=== PATIENT | male | born 1965 | race Caucasian/White ===

== ENCOUNTER 2021-10-07 10:45 | Inpatient (IN) | payer BC, MEDICAID ==
[~2021-10-07] VITALS: Ht 167.6 cm; Wt 108.0 kg
[2021-10-07] MEDS ORDERED: SODIUM CHLORIDE 0.9% 1,000 ML IV ONE (11:30)
[2021-10-07] MEDS ORDERED: SODIUM CHLORIDE 0.9% 1,000 ML IVB ONE (11:30)
[2021-10-07] MEDS ORDERED: ASPirin 81 mg TAB PO ONE (11:30)
[2021-10-07 12:00] LABS: Basophils # (auto) 0 10 ^3/uL (0-0.2); Basophils % (auto) 0.2 % (0.0-2.0); Eosinophils # (auto) 0 10 ^3/uL (0-0.8); Hemoglobin 12.2 g/dL (13.5-17.5); Lymphocytes # (auto) 0.5 10 ^3/uL (0.4-5.4); Lymphocytes % (auto) 7.4 % (10.0-50.0); Mean Corpuscular Hgb Conc. 33.1 g/dL (32.0-36.0); Mean Corpuscular Volume 87.8 fL (80.0-100.0); Monocytes # (auto) 0.3 10 ^3/uL (0-1.3); Monocytes % (auto) 5.1 % (0.0-12.0); Neutrophils # (auto) 5.7 10 ^3/uL (1.6-8.6); Neutrophils % (auto) 87.3 % (37.0-80.0); Red Blood Cells 4.22 10^6/uL (4.5-5.90); Red Cell Distribution Width 14.5 % (11.8-14.3); White Blood Cell 6.6 10^3/uL (4.4-10.8)
[2021-10-07 12:14] LABS: Albumin 3.2 g/dL (3.4-5.0); Calcium 7.9 mg/dL (8.5-10.1); Magnesium 2.7 mg/dL (1.6-2.6)
[2021-10-07 12:20] LABS: BUN/Creatinine Ratio 15.8; Bilirubin, Total 0.4 mg/dL (0.2-1.0)
[2021-10-07] MEDS ORDERED: hydrOXYchloroQUINE SULFATE 200 MG TAB PO ONE (15:30)
[2021-10-07] MEDS ORDERED: cefTRIAXone 1GM/50ML D5W 50 ML IV ONE (15:30)
[2021-10-07] MEDS ORDERED: ZINC SULFATE 220mg CAP or TAB PO ONE (15:30)
[2021-10-07] MEDS ORDERED: CHOLECALCIFEROL (VITD3) 2,000 UNIT CAP/TAB PO ONE (15:30)
[2021-10-07] MEDS ORDERED: DexAMETHasone SOD PHOS 10MG/1ML VIAL INJ IV ONE (15:30)
[2021-10-07] MEDS ORDERED: ASCORBIC ACID 500 MG TAB PO ONE (15:30)
[2021-10-07] MEDS ORDERED: AZITHROMYCIN 500MG/ 250ML 250 ML IV ONE (15:30)
[2021-10-07] MEDS ORDERED: IOHEXOL 350 MG/ML 100ML IJ ONE (16:47)
[2021-10-07] MEDS ORDERED: ACETAMINOPHEN 325 MG TAB PO PRN (18:30)
[2021-10-07] MEDS ORDERED: REMDESIVIR PER PHARMACY 0 ML IV SCH (18:30)
[2021-10-07] MEDS ORDERED: NITROGLYCERIN 0.4 MG SL TAB SL PRN (18:30)
[2021-10-07] MEDS ORDERED: MORPHINE SULFATE INJECTION 2 MG/ML SYRG IV PRN ×2 (18:30)
[2021-10-07] MEDS ORDERED: HYDROcodone-ACET 5/325MG TAB PO PRN (18:30)
[2021-10-07] MEDS ORDERED: DEXTROSE (50%) 50ML SYRG IV PRN (19:00)
[2021-10-07] MEDS: InsuLIN REG 1unit/0.01ml Soln (100units/ml) SC SCH (20:00)
[2021-10-07] MEDS: ACCU-CHEK COMFORT CURVE STRIP VI SCH (21:06)
[2021-10-07 21:07] LABS: Urine Bacteria NONE SEEN /hpf (None Seen); Urine Blood Negative /uL (Negative); Urine Hyaline Cast FEW /lpf (0 - 2); Urine Mucus FEW (None Seen); Urine Specific Gravity 1.045 (1.001-1.035); Urine WBC 1 /hpf (0 - 3)
[2021-10-07] MEDS: SODIUM CHLOR 0.9% PF (SALINE LOCK) 10ML VIAL/SYR IV SCH (21:26)
[2021-10-07] MEDS: ENOXAPARIN SOD 40 MG/0.4 ML SYRINGE SC SCH (21:30)
[2021-10-07 22:00] VITALS: BP 122/66
[2021-10-07 22:19] LABS: Thyroid Stimulating Hormone 2.9 uIU/mL (0.358-3.74)
[2021-10-08 00:22] LABS: CRP High Sensitivity 13.7 mg/dL (< 0.3)
[2021-10-08] MEDS: ACCU-CHEK COMFORT CURVE STRIP VI SCH ×3 (00:30→08:53)
[2021-10-08] MEDS: InsuLIN REG 1unit/0.01ml Soln (100units/ml) SC SCH ×3 (04:00→08:00)
[2021-10-08 05:00] VITALS: BP 117/60
[2021-10-08] MEDS: SODIUM CHLOR 0.9% PF (SALINE LOCK) 10ML VIAL/SYR IV SCH ×3 (05:22→22:24)
[2021-10-08 08:16] LABS: Basophils # (auto) 0 10 ^3/uL (0-0.2); Basophils % (auto) 0.1 % (0.0-2.0); Eosinophils # (auto) 0 10 ^3/uL (0-0.8); Hematocrit 35.8 % (41.0-53.0); Lymphocytes # (auto) 0.5 10 ^3/uL (0.4-5.4); Lymphocytes % (auto) 9.4 % (10.0-50.0); Mean Corpuscular Hgb Conc. 33.5 g/dL (32.0-36.0); Mean Corpuscular Volume 86.8 fL (80.0-100.0); Monocytes # (auto) 0.4 10 ^3/uL (0-1.3); Monocytes % (auto) 7.7 % (0.0-12.0); Neutrophils # (auto) 4.7 10 ^3/uL (1.6-8.6); Neutrophils % (auto) 82.8 % (37.0-80.0); Nucleated Red Blood Cells % 0.1 %; Red Blood Cells 4.13 10^6/uL (4.5-5.90); Red Cell Distribution Width 14.3 % (11.8-14.3); White Blood Cell 5.6 10^3/uL (4.4-10.8)
[2021-10-08 08:25] LABS: Albumin 2.8 g/dL (3.4-5.0); Calcium 8.2 mg/dL (8.5-10.1); Potassium 4.3 mmol/L (3.5-5.1)
[2021-10-08 08:30] LABS: BUN/Creatinine Ratio 17.7; Bilirubin, Total 0.4 mg/dL (0.2-1.0); Total Protein 6.9 g/dL (6.4-8.2)
[2021-10-08 08:46] VITALS: BP 131/72
[2021-10-08] MEDS: cefTRIAXone 1GM/50ML D5W 50 ML IV SCH (08:53)
[2021-10-08] MEDS: CHOLECALCIFEROL (VITD3) 2,000 UNIT CAP/TAB PO SCH (08:54)
[2021-10-08] MEDS: ASCORBIC ACID 1,000 MG TAB PO SCH (08:54)
[2021-10-08] MEDS: ENOXAPARIN SOD 40 MG/0.4 ML SYRINGE SC SCH ×2 (08:54→22:24)
[2021-10-08] MEDS: ZINC SULFATE 220mg CAP or TAB PO SCH (08:54)
[2021-10-08] MEDS: AZITHROMYCIN 500MG/ 250ML 250 ML IV SCH (08:54)
[2021-10-08] MEDS: DexAMETHasone SOD PHOS 10MG/1ML VIAL INJ IV SCH (08:55)
[2021-10-08] MEDS: BUDESONIDE (INHALATION) 180 MCG IH IN SCH ×2 (10:00→22:00)
[2021-10-08 12:39] VITALS: BP 135/73
[2021-10-08] MEDS ORDERED: REMDESIVIR 200 MG in NS 210ml LOADING DOSE ADULT IV ONE (15:00)
[2021-10-08 16:57] VITALS: BP 122/50
[2021-10-08 22:07] VITALS: BP 125/73
[2021-10-09 04:52] VITALS: BP 126/64
[2021-10-09] MEDS: SODIUM CHLOR 0.9% PF (SALINE LOCK) 10ML VIAL/SYR IV SCH ×3 (06:58→21:53)
[2021-10-09 08:16] LABS: Potassium 4.2 mmol/L (3.5-5.1)
[2021-10-09 08:34] LABS: Albumin 2.8 g/dL (3.4-5.0); BUN/Creatinine Ratio 23.9; Bilirubin, Total 0.4 mg/dL (0.2-1.0); Total Protein 6.1 g/dL (6.4-8.2)
[2021-10-09 09:00] VITALS: BP 107/68
[2021-10-09] MEDS: BUDESONIDE (INHALATION) 180 MCG IH IN SCH ×2 (09:41→22:00)
[2021-10-09] MEDS: DexAMETHasone SOD PHOS 10MG/1ML VIAL INJ IV SCH (10:47)
[2021-10-09] MEDS: cefTRIAXone 1GM/50ML D5W 50 ML IV SCH (10:47)
[2021-10-09] MEDS: ENOXAPARIN SOD 40 MG/0.4 ML SYRINGE SC SCH ×2 (10:48→21:53)
[2021-10-09] MEDS: CHOLECALCIFEROL (VITD3) 2,000 UNIT CAP/TAB PO SCH (10:48)
[2021-10-09] MEDS: ASCORBIC ACID 1,000 MG TAB PO SCH (10:48)
[2021-10-09] MEDS: ZINC SULFATE 220mg CAP or TAB PO SCH (10:48)
[2021-10-09] MEDS: AZITHROMYCIN 500MG/ 250ML 250 ML IV SCH (11:00)
[2021-10-09 13:00] VITALS: BP 118/67
[2021-10-09] MEDS: REMDESIVIR 100mg 100 MG in SODIUM CHL 0.9% 230 ML IV SCH (16:07)
[2021-10-09 17:00] VITALS: BP 111/66
[2021-10-09] MEDS: ONDANSETRON HCL 4 MG/2 ML VIAL IV PRN (21:59)
[2021-10-09 22:00] VITALS: BP 116/61
[2021-10-09] MEDS: ALBUTEROL SULF HFA 90MCG INH 200DOSE IN PRN (23:22)
[2021-10-10] VITALS (7 sets, daily range): BP systolic 109–129; BP diastolic 60–82
[2021-10-10] MEDS: SODIUM CHLOR 0.9% PF (SALINE LOCK) 10ML VIAL/SYR IV SCH ×3 (06:29→22:06)
[2021-10-10] MEDS: LORazepam 0.5 MG TAB PO PRN ×2 (06:37→20:13)
[2021-10-10 07:38] LABS: Calcium 8.3 mg/dL (8.5-10.1); Potassium 4.8 mmol/L (3.5-5.1)
[2021-10-10 07:44] LABS: Albumin 2.9 g/dL (3.4-5.0); BUN/Creatinine Ratio 29.1; Bilirubin, Total 0.5 mg/dL (0.2-1.0); Total Protein 6.1 g/dL (6.4-8.2)
[2021-10-10] MEDS: BUDESONIDE (INHALATION) 180 MCG IH IN SCH ×2 (10:14→22:00)
[2021-10-10] MEDS: ASCORBIC ACID 1,000 MG TAB PO SCH (10:15)
[2021-10-10] MEDS: ZINC SULFATE 220mg CAP or TAB PO SCH (10:15)
[2021-10-10] MEDS: DexAMETHasone SOD PHOS 10MG/1ML VIAL INJ IV SCH (10:15)
[2021-10-10] MEDS: cefTRIAXone 1GM/50ML D5W 50 ML IV SCH (10:15)
[2021-10-10] MEDS: CHOLECALCIFEROL (VITD3) 2,000 UNIT CAP/TAB PO SCH (10:15)
[2021-10-10] MEDS: ENOXAPARIN SOD 40 MG/0.4 ML SYRINGE SC SCH ×2 (10:16→22:06)
[2021-10-10] MEDS: AZITHROMYCIN 500MG/ 250ML 250 ML IV SCH (11:52)
[2021-10-10] MEDS: ALBUTEROL SULF HFA 90MCG INH 200DOSE IN PRN ×2 (11:53→23:31)
[2021-10-10] MEDS: REMDESIVIR 100mg 100 MG in SODIUM CHL 0.9% 230 ML IV SCH (17:11)
[2021-10-10] MEDS: ONDANSETRON HCL 4 MG/2 ML VIAL IV PRN (20:13)
[2021-10-11] VITALS (12 sets, daily range): BP systolic 96–124; BP diastolic 49–64
[2021-10-11] MEDS: SODIUM CHLOR 0.9% PF (SALINE LOCK) 10ML VIAL/SYR IV SCH ×3 (06:00→21:36)
[2021-10-11 06:19] LABS: Basophils # (auto) 0 10 ^3/uL (0-0.2); Basophils % (auto) 0.1 % (0.0-2.0); Eosinophils # (auto) 0 10 ^3/uL (0-0.8); Hematocrit 36.2 % (41.0-53.0); Hemoglobin 12.1 g/dL (13.5-17.5); Lymphocytes # (auto) 0.5 10 ^3/uL (0.4-5.4); Lymphocytes % (auto) 4.8 % (10.0-50.0); Mean Corpuscular Hemoglobin 28.9 pg (28.0-32.0); Mean Corpuscular Hgb Conc. 33.3 g/dL (32.0-36.0); Mean Corpuscular Volume 86.6 fL (80.0-100.0); Monocytes # (auto) 0.8 10 ^3/uL (0-1.3); Monocytes % (auto) 8.3 % (0.0-12.0); Neutrophils # (auto) 8.8 10 ^3/uL (1.6-8.6); Neutrophils % (auto) 86.8 % (37.0-80.0); Red Blood Cells 4.18 10^6/uL (4.5-5.90); Red Cell Distribution Width 14.5 % (11.8-14.3); White Blood Cell 10.1 10^3/uL (4.4-10.8)
[2021-10-11 06:37] LABS: Albumin 2.7 g/dL (3.4-5.0); Calcium 8.6 mg/dL (8.5-10.1); Potassium 4.5 mmol/L (3.5-5.1)
[2021-10-11 06:40] LABS: BUN/Creatinine Ratio 28.4
[2021-10-11 06:42] LABS: Bilirubin, Total 0.6 mg/dL (0.2-1.0); Total Protein 6.4 g/dL (6.4-8.2)
[2021-10-11] MEDS: CHOLECALCIFEROL (VITD3) 2,000 UNIT CAP/TAB PO SCH (10:00)
[2021-10-11] MEDS: ZINC SULFATE 220mg CAP or TAB PO SCH (10:00)
[2021-10-11] MEDS: ASCORBIC ACID 1,000 MG TAB PO SCH (10:00)
[2021-10-11] MEDS: DexAMETHasone SOD PHOS 10MG/1ML VIAL INJ IV SCH (10:30)
[2021-10-11] MEDS: ENOXAPARIN SOD 40 MG/0.4 ML SYRINGE SC SCH ×2 (10:30→21:36)
[2021-10-11] MEDS: cefTRIAXone 1GM/50ML D5W 50 ML IV SCH (10:30)
[2021-10-11] MEDS: BUDESONIDE (INHALATION) 180 MCG IH IN SCH ×2 (10:30→18:57)
[2021-10-11] MEDS: AZITHROMYCIN 500MG/ 250ML 250 ML IV SCH (11:30)
[2021-10-11] MEDS: REMDESIVIR 100mg 100 MG in SODIUM CHL 0.9% 230 ML IV SCH (15:00)
[2021-10-11] MEDS: ALBUTEROL SULF HFA 90MCG INH 200DOSE IN PRN (18:57)
[2021-10-12] VITALS (10 sets, daily range): BP systolic 107–133; BP diastolic 55–76
[2021-10-12] MEDS: ALBUTEROL SULF HFA 90MCG INH 200DOSE IN PRN ×2 (05:58→19:29)
[2021-10-12] MEDS: BUDESONIDE (INHALATION) 180 MCG IH IN SCH ×2 (05:58→19:28)
[2021-10-12] MEDS: SODIUM CHLOR 0.9% PF (SALINE LOCK) 10ML VIAL/SYR IV SCH ×3 (06:00→22:40)
[2021-10-12 07:53] LABS: Potassium 4.4 mmol/L (3.5-5.1)
[2021-10-12 07:57] LABS: Albumin 2.7 g/dL (3.4-5.0); BUN/Creatinine Ratio 35.1; Calcium 8.3 mg/dL (8.5-10.1)
[2021-10-12 08:00] LABS: Bilirubin, Total 0.7 mg/dL (0.2-1.0); Total Protein 6.5 g/dL (6.4-8.2)
[2021-10-12] MEDS: DexAMETHasone SOD PHOS 10MG/1ML VIAL INJ IV SCH (09:38)
[2021-10-12] MEDS: ZINC SULFATE 220mg CAP or TAB PO SCH (09:39)
[2021-10-12] MEDS: CHOLECALCIFEROL (VITD3) 2,000 UNIT CAP/TAB PO SCH (09:39)
[2021-10-12] MEDS: ASCORBIC ACID 1,000 MG TAB PO SCH (09:39)
[2021-10-12] MEDS: cefTRIAXone 1GM/50ML D5W 50 ML IV SCH (09:39)
[2021-10-12] MEDS: ENOXAPARIN SOD 40 MG/0.4 ML SYRINGE SC SCH ×2 (09:40→22:47)
[2021-10-12] MEDS: AZITHROMYCIN 500MG/ 250ML 250 ML IV SCH (10:40)
[2021-10-12] MEDS ORDERED: PPN PER PHARMACY 0 ML IV SCH (14:00)
[2021-10-12 14:32] LABS: Magnesium 2.4 mg/dL (1.6-2.6); Phosphorus 3.9 mg/dL (2.5-4.90)
[2021-10-12 14:36] LABS: Pre Albumin 12.5 mg/dL (20.0-40.0)
[2021-10-12] MEDS: REMDESIVIR 100mg 100 MG in SODIUM CHL 0.9% 230 ML IV SCH (15:30)
[2021-10-12] MEDS: LORazepam 0.5 MG TAB PO PRN ×2 (16:00→22:56)
[2021-10-12] MEDS ORDERED: AMINO ACID INFUSION IN D10W 1,000 ML IV NR (20:00)
[2021-10-12] MEDS: ACCU-CHEK COMFORT CURVE STRIP VI SCH (23:31)
[2021-10-12] MEDS: InsuLIN REG 1unit/0.01ml Soln (100units/ml) SC SCH (23:35)
[2021-10-13] VITALS (9 sets, daily range): BP systolic 113–134; BP diastolic 55–71
[2021-10-13] MEDS ORDERED: DEXTROSE (50%) 50ML SYRG IV SCH
[2021-10-13] MEDS: InsuLIN REG 1unit/0.01ml Soln (100units/ml) SC SCH ×3 (06:00→18:22)
[2021-10-13] MEDS: SODIUM CHLOR 0.9% PF (SALINE LOCK) 10ML VIAL/SYR IV SCH ×3 (06:19→20:40)
[2021-10-13] MEDS: ACCU-CHEK COMFORT CURVE STRIP VI SCH ×3 (06:19→18:00)
[2021-10-13] MEDS: ENOXAPARIN SOD 40 MG/0.4 ML SYRINGE SC SCH ×2 (09:40→20:40)
[2021-10-13] MEDS: DexAMETHasone SOD PHOS 10MG/1ML VIAL INJ IV SCH (09:40)
[2021-10-13] MEDS: LORazepam 0.5 MG TAB PO PRN (09:40)
[2021-10-13] MEDS: BUDESONIDE (INHALATION) 180 MCG IH IN SCH (10:00)
[2021-10-13] MEDS: AZITHROMYCIN 500MG/ 250ML 250 ML IV SCH ×2 (10:00→17:50)
[2021-10-13] MEDS: CHOLECALCIFEROL (VITD3) 2,000 UNIT CAP/TAB PO SCH (10:00)
[2021-10-13] MEDS: cefTRIAXone 1GM/50ML D5W 50 ML IV SCH ×2 (10:00→16:50)
[2021-10-13] MEDS: ZINC SULFATE 220mg CAP or TAB PO SCH (10:00)
[2021-10-13] MEDS: ASCORBIC ACID 1,000 MG TAB PO SCH (10:00)
[2021-10-13 10:01] LABS: Calcium 8.6 mg/dL (8.5-10.1); Magnesium 3.2 mg/dL (1.6-2.6); Potassium 4.3 mmol/L (3.5-5.1)
[2021-10-13 10:05] LABS: BUN/Creatinine Ratio 32.5; Bilirubin, Total 0.9 mg/dL (0.2-1.0); Phosphorus 3.1 mg/dL (2.5-4.90); Total Protein 7.1 g/dL (6.4-8.2)
[2021-10-13] MEDS ORDERED: SUCCINYLCHOLINE CHLORIDE 20 MG/ML 10ML VIAL IV ONE (10:12)
[2021-10-13] MEDS ORDERED: ETOMIDATE (2MG/ML) 20ML VIAL IV ONE (10:13)
[2021-10-13] MEDS ORDERED: ROCURONIUM 10MG/ML 10ML VIAL IV ONE (10:13)
[2021-10-13] MEDS ORDERED: MIDAZOLAM DRIP 50 mg/50mL 0 ML IV ONE (10:16)
[2021-10-13] MEDS ORDERED: fentaNYL Drip 2500mCg/250mlNS 0 ML IV ONE (10:16)
[2021-10-13] MEDS: ALBUTEROL SULF HFA 90MCG INH 200DOSE IN PRN (10:44)
[2021-10-13 14:15] LABS: INR 1.12 (0.9-1.15); Partial Thromboplastin Time 25.1 sec (23.6-33.0)
[2021-10-13] MEDS: LORazepam 2MG/ML-1ML VIAL IV PRN (16:50)
[2021-10-13] MEDS ORDERED: PPN PER PHARMACY IV NR ×8 (20:00)
[2021-10-14] VITALS (9 sets, daily range): BP systolic 115–150; BP diastolic 69–89
[2021-10-14] MEDS: LORazepam 2MG/ML-1ML VIAL IV PRN ×2 (02:15→08:51)
[2021-10-14] MEDS: ACCU-CHEK COMFORT CURVE STRIP VI SCH ×5 (05:56→23:52)
[2021-10-14] MEDS: SODIUM CHLOR 0.9% PF (SALINE LOCK) 10ML VIAL/SYR IV SCH ×3 (05:56→20:31)
[2021-10-14] MEDS: InsuLIN REG 1unit/0.01ml Soln (100units/ml) SC SCH ×5 (06:00→23:54)
[2021-10-14 06:05] LABS: Albumin 2.6 g/dL (3.4-5.0); BUN/Creatinine Ratio 36.7; Bilirubin, Total 0.8 mg/dL (0.2-1.0); Calcium 8.1 mg/dL (8.5-10.1); Magnesium 2.3 mg/dL (1.6-2.6); Phosphorus 3.6 mg/dL (2.5-4.90); Total Protein 6.7 g/dL (6.4-8.2)
[2021-10-14] MEDS: ZINC SULFATE 220mg CAP or TAB PO SCH (09:21)
[2021-10-14] MEDS: CHOLECALCIFEROL (VITD3) 2,000 UNIT CAP/TAB PO SCH (09:21)
[2021-10-14] MEDS: ASCORBIC ACID 1,000 MG TAB PO SCH (09:21)
[2021-10-14] MEDS: DexAMETHasone SOD PHOS 10MG/1ML VIAL INJ IV SCH (09:27)
[2021-10-14] MEDS: ENOXAPARIN SOD 40 MG/0.4 ML SYRINGE SC SCH ×2 (09:27→20:30)
[2021-10-14] MEDS: cefTRIAXone 1GM/50ML D5W 50 ML IV SCH (09:27)
[2021-10-14] MEDS: BUDESONIDE (INHALATION) 180 MCG IH IN SCH (09:57)
[2021-10-14] MEDS: AZITHROMYCIN 500MG/ 250ML 250 ML IV SCH (10:28)
[2021-10-14] MEDS: FUROSEMIDE 40 MG/4 ML VIAL IV SCH ×3 (12:39→18:00)
[2021-10-14] MEDS ORDERED: SUCCINYLCHOLINE CHLORIDE 20 MG/ML 10ML VIAL IV ONE (13:27)
[2021-10-14] MEDS ORDERED: ETOMIDATE (2MG/ML) 20ML VIAL IV ONE (13:28)
[2021-10-14] MEDS ORDERED: ROCURONIUM 10MG/ML 10ML VIAL IV ONE ×3 (13:28→16:33)
[2021-10-14] MEDS ORDERED: MIDAZOLAM DRIP 50 mg/50mL 50 ML IV ONE ×3 (13:31→17:48)
[2021-10-14] MEDS ORDERED: fentaNYL Drip 2500mCg/250mlNS 250 ML IV ONE (13:31)
[2021-10-14] MEDS ORDERED: PROPOFOL 100 ML IV ONE ×2 (15:32→17:48)
[2021-10-14] MEDS ORDERED: NOREPINEPHRINE 8 MG/250ML KIT 250 ML IV ONE (15:32)
[2021-10-14] MEDS ORDERED: PPN PER PHARMACY IV NR ×8 (20:00)
[2021-10-14] MEDS: fentaNYL Drip 2500mCg/250mlNS 250 ML IV SCH ×2 (20:11→20:32)
[2021-10-14] MEDS: PROPOFOL 100 ML IV SCH (20:12)
[2021-10-14] MEDS: NOREPINEPHRINE 8 MG/250ML KIT 250 ML IV SCH (20:12)
[2021-10-14] MEDS: MIDAZOLAM DRIP 50 mg/50mL 50 ML IV SCH (20:13)
[2021-10-15] VITALS (27 sets, daily range): BP systolic 90–122; BP diastolic 55–75
[2021-10-15] MEDS: PROPOFOL 100 ML IV SCH ×3 (03:03→20:12)
[2021-10-15 05:25] LABS: Basophils # (auto) 0 10 ^3/uL (0-0.2); Basophils % (auto) 0.1 % (0.0-2.0); Eosinophils # (auto) 0 10 ^3/uL (0-0.8); Eosinophils % (auto) 0.1 % (0.0-7.0); Hematocrit 39.2 % (41.0-53.0); Lymphocytes # (auto) 0.4 10 ^3/uL (0.4-5.4); Lymphocytes % (auto) 2.3 % (10.0-50.0); Mean Corpuscular Hgb Conc. 33.2 g/dL (32.0-36.0); Mean Corpuscular Volume 87.5 fL (80.0-100.0); Monocytes # (auto) 0.6 10 ^3/uL (0-1.3); Neutrophils # (auto) 18.6 10 ^3/uL (1.6-8.6); Neutrophils % (auto) 94.5 % (37.0-80.0); Red Blood Cells 4.48 10^6/uL (4.5-5.90); White Blood Cell 19.7 10^3/uL (4.4-10.8)
[2021-10-15] MEDS: FUROSEMIDE 40 MG/4 ML VIAL IV SCH ×3 (05:26→18:00)
[2021-10-15] MEDS: SODIUM CHLOR 0.9% PF (SALINE LOCK) 10ML VIAL/SYR IV SCH ×3 (05:27→20:51)
[2021-10-15] MEDS: ACCU-CHEK COMFORT CURVE STRIP VI SCH ×3 (05:38→18:00)
[2021-10-15] MEDS: InsuLIN REG 1unit/0.01ml Soln (100units/ml) SC SCH ×3 (05:40→18:00)
[2021-10-15 06:06] LABS: Albumin 2.6 g/dL (3.4-5.0); BUN/Creatinine Ratio 34.5; Bilirubin, Total 0.6 mg/dL (0.2-1.0); Calcium 8.2 mg/dL (8.5-10.1); Magnesium 3.7 mg/dL (1.6-2.6); Phosphorus 4.4 mg/dL (2.5-4.90); Total Protein 6.8 g/dL (6.4-8.2)
[2021-10-15] MEDS: DexAMETHasone SOD PHOS 10MG/1ML VIAL INJ IV SCH (10:31)
[2021-10-15] MEDS: cefTRIAXone 1GM/50ML D5W 50 ML IV SCH (10:32)
[2021-10-15] MEDS: CHOLECALCIFEROL (VITD3) 2,000 UNIT CAP/TAB PO SCH (10:32)
[2021-10-15] MEDS: ENOXAPARIN SOD 40 MG/0.4 ML SYRINGE SC SCH ×2 (10:32→20:50)
[2021-10-15] MEDS: ASCORBIC ACID 1,000 MG TAB PO SCH (10:32)
[2021-10-15] MEDS: AZITHROMYCIN 500MG/ 250ML 250 ML IV SCH (10:32)
[2021-10-15] MEDS: ZINC SULFATE 220mg CAP or TAB PO SCH (10:33)
[2021-10-15] MEDS ORDERED: PPN PER PHARMACY IV NR ×5 (20:00)
[2021-10-15] MEDS: MIDAZOLAM DRIP 50 mg/50mL 50 ML IV SCH (20:11)
[2021-10-15] MEDS: fentaNYL Drip 2500mCg/250mlNS 250 ML IV SCH (20:13)
[2021-10-15] MEDS: NOREPINEPHRINE 8 MG/250ML KIT 250 ML IV SCH (20:22)
[2021-10-16] VITALS (30 sets, daily range): BP systolic 63–134; BP diastolic 55–70
[2021-10-16] MEDS: MIDAZOLAM DRIP 50 mg/50mL 50 ML IV SCH ×2 (00:57→04:55)
[2021-10-16] MEDS: ACCU-CHEK COMFORT CURVE STRIP VI SCH ×5 (00:58→23:57)
[2021-10-16] MEDS: PROPOFOL 100 ML IV SCH ×2 (00:58→04:52)
[2021-10-16] MEDS: InsuLIN REG 1unit/0.01ml Soln (100units/ml) SC SCH ×5 (01:00→23:57)
[2021-10-16] MEDS: SODIUM CHLOR 0.9% PF (SALINE LOCK) 10ML VIAL/SYR IV SCH ×3 (04:53→20:31)
[2021-10-16] MEDS: FUROSEMIDE 40 MG/4 ML VIAL IV SCH ×2 (04:53→16:03)
[2021-10-16] MEDS: fentaNYL Drip 2500mCg/250mlNS 250 ML IV SCH ×2 (07:29→23:58)
[2021-10-16] MEDS: ASCORBIC ACID 1,000 MG TAB PO SCH (10:00)
[2021-10-16] MEDS: DexAMETHasone SOD PHOS 10MG/1ML VIAL INJ IV SCH (10:00)
[2021-10-16] MEDS: AZITHROMYCIN 500MG/ 250ML 250 ML IV SCH (10:00)
[2021-10-16] MEDS: cefTRIAXone 1GM/50ML D5W 50 ML IV SCH (10:00)
[2021-10-16] MEDS: ZINC SULFATE 220mg CAP or TAB PO SCH (10:00)
[2021-10-16] MEDS: ENOXAPARIN SOD 40 MG/0.4 ML SYRINGE SC SCH ×2 (10:00→20:32)
[2021-10-16] MEDS: CHOLECALCIFEROL (VITD3) 2,000 UNIT CAP/TAB PO SCH (10:00)
[2021-10-16 11:38] LABS: Albumin 2.6 g/dL (3.4-5.0); Magnesium 3.5 mg/dL (1.6-2.6); Potassium 4.3 mmol/L (3.5-5.1)
[2021-10-16 11:43] LABS: BUN/Creatinine Ratio 34.4; Bilirubin, Total 0.3 mg/dL (0.2-1.0); Phosphorus 4.2 mg/dL (2.5-4.90); Total Protein 6.9 g/dL (6.4-8.2)
[2021-10-16] MEDS: NOREPINEPHRINE 8 MG/250ML KIT 250 ML IV SCH (20:00)
[2021-10-16] MEDS: AMINO ACID INFUSION IN D10W 1,000 ML IV NR (21:49)
[2021-10-17] VITALS (34 sets, daily range): BP systolic 90–137; BP diastolic 50–94
[2021-10-17 04:25] LABS: Albumin 2.3 g/dL (3.4-5.0); Potassium 4.5 mmol/L (3.5-5.1)
[2021-10-17 04:29] LABS: BUN/Creatinine Ratio 41.7; Bilirubin, Total 0.4 mg/dL (0.2-1.0); Phosphorus 3.8 mg/dL (2.5-4.90); Total Protein 6.5 g/dL (6.4-8.2)
[2021-10-17] MEDS: SODIUM CHLOR 0.9% PF (SALINE LOCK) 10ML VIAL/SYR IV SCH ×3 (06:01→21:11)
[2021-10-17] MEDS: FUROSEMIDE 40 MG/4 ML VIAL IV SCH ×2 (06:01→18:13)
[2021-10-17] MEDS: InsuLIN REG 1unit/0.01ml Soln (100units/ml) SC SCH ×4 (06:03→23:09)
[2021-10-17] MEDS: ACCU-CHEK COMFORT CURVE STRIP VI SCH ×4 (06:03→23:00)
[2021-10-17] MEDS: ENOXAPARIN SOD 40 MG/0.4 ML SYRINGE SC SCH ×2 (10:00→21:11)
[2021-10-17] MEDS: AZITHROMYCIN 500MG/ 250ML 250 ML IV SCH (10:00)
[2021-10-17] MEDS: cefTRIAXone 1GM/50ML D5W 50 ML IV SCH (10:00)
[2021-10-17] MEDS: ZINC SULFATE 220mg CAP or TAB PO SCH (10:00)
[2021-10-17] MEDS: ASCORBIC ACID 1,000 MG TAB PO SCH (10:00)
[2021-10-17] MEDS: DexAMETHasone SOD PHOS 10MG/1ML VIAL INJ IV SCH (10:00)
[2021-10-17] MEDS: CHOLECALCIFEROL (VITD3) 2,000 UNIT CAP/TAB PO SCH (10:00)
[2021-10-17 12:40] LABS: INR 0.99 (0.9-1.15); Partial Thromboplastin Time 24.5 sec (23.6-33.0)
[2021-10-17] MEDS: AMINO ACID INFUSION IN D10W 1,000 ML IV NR (19:25)
[2021-10-17] MEDS ORDERED: Glucerna 1.2 Cal 1Liter BOTTLE GT SCH (19:45)
[2021-10-17] MEDS: NOREPINEPHRINE 8 MG/250ML KIT 250 ML IV SCH (20:00)
[2021-10-18] VITALS (66 sets, daily range): BP systolic 101–135; BP diastolic 60–85
[2021-10-18] MEDS: MIDAZOLAM DRIP 50 mg/50mL 50 ML IV SCH ×2 (04:48→20:00)
[2021-10-18] MEDS: SODIUM CHLOR 0.9% PF (SALINE LOCK) 10ML VIAL/SYR IV SCH ×3 (04:48→22:00)
[2021-10-18 05:06] LABS: Basophils # (auto) 0 10 ^3/uL (0-0.2); Basophils % (auto) 0.2 % (0.0-2.0); Eosinophils # (auto) 0 10 ^3/uL (0-0.8); Eosinophils % (auto) 0.1 % (0.0-7.0); Hematocrit 34.5 % (41.0-53.0); Hemoglobin 11.6 g/dL (13.5-17.5); Lymphocytes # (auto) 0.3 10 ^3/uL (0.4-5.4); Lymphocytes % (auto) 2.7 % (10.0-50.0); Mean Corpuscular Hemoglobin 29.5 pg (28.0-32.0); Mean Corpuscular Hgb Conc. 33.6 g/dL (32.0-36.0); Mean Corpuscular Volume 87.7 fL (80.0-100.0); Monocytes # (auto) 0.5 10 ^3/uL (0-1.3); Monocytes % (auto) 4.4 % (0.0-12.0); Neutrophils % (auto) 92.6 % (37.0-80.0); Red Blood Cells 3.94 10^6/uL (4.5-5.90); Red Cell Distribution Width 14.1 % (11.8-14.3); White Blood Cell 10.8 10^3/uL (4.4-10.8)
[2021-10-18 05:24] LABS: Chloride 104 mmol/L (98-107); Potassium 4.2 mmol/L (3.5-5.1); Sodium 140 mmol/L (136-145)
[2021-10-18] MEDS: FUROSEMIDE 40 MG/4 ML VIAL IV SCH ×2 (05:34→18:01)
[2021-10-18] MEDS: InsuLIN REG 1unit/0.01ml Soln (100units/ml) SC SCH ×3 (05:35→18:28)
[2021-10-18] MEDS: ACCU-CHEK COMFORT CURVE STRIP VI SCH ×3 (05:35→18:28)
[2021-10-18 05:39] LABS: Anion Gap 4 (5-15); BUN/Creatinine Ratio 63.6; Blood Urea Nitrogen 68 mg/dL (7-18); CRP High Sensitivity 4.86 mg/dL (< 0.3); Calcium 8.6 mg/dL (8.5-10.1); Carbon Dioxide 32 mmol/L (21-32); Cholesterol 225 mg/dL (< 200); GFR African American 92 mL/min; GFR Non-African American 76 mL/min; Glucose 134 mg/dL (74-106); HDL Cholesterol 32 mg/dL (40-59); Triglycerides 459 mg/dL (< 150)
[2021-10-18] MEDS: PROPOFOL 100 ML IV SCH (05:39)
[2021-10-18] MEDS: ALBUTEROL SULF 2.5 MG/0.5ML(0.5%) NEB SOLN NEB PRN (06:27)
[2021-10-18] MEDS: AZITHROMYCIN 500MG/ 250ML 250 ML IV SCH (10:00)
[2021-10-18] MEDS: ENOXAPARIN SOD 40 MG/0.4 ML SYRINGE SC SCH ×2 (10:00→22:00)
[2021-10-18] MEDS: DexAMETHasone SOD PHOS 10MG/1ML VIAL INJ IV SCH (10:37)
[2021-10-18] MEDS: cefTRIAXone 1GM/50ML D5W 50 ML IV SCH (10:37)
[2021-10-18] MEDS: ASCORBIC ACID 1,000 MG TAB PO SCH (10:38)
[2021-10-18] MEDS: CHOLECALCIFEROL (VITD3) 2,000 UNIT CAP/TAB PO SCH (10:38)
[2021-10-18] MEDS: ZINC SULFATE 220mg CAP or TAB PO SCH (10:38)
[2021-10-18] MEDS: ENOXAPARIN SOD 100 MG/1 ML SYRINGE SC SCH ×2 (10:40→22:00)
[2021-10-18] MEDS: fentaNYL Drip 2500mCg/250mlNS 250 ML IV SCH (12:12)
[2021-10-18] MEDS: METOCLOPRAMIDE HCL 5MG/ml INJ 2ml VIAL IV SCH ×2 (14:40→22:52)
[2021-10-18] MEDS: NOREPINEPHRINE 8 MG/250ML KIT 250 ML IV SCH (20:00)
[2021-10-19] VITALS (63 sets, daily range): BP systolic 106–152; BP diastolic 52–83
[2021-10-19] MEDS: ACCU-CHEK COMFORT CURVE STRIP VI SCH ×5 (00:01→23:39)
[2021-10-19] MEDS: InsuLIN REG 1unit/0.01ml Soln (100units/ml) SC SCH ×5 (00:01→23:39)
[2021-10-19] MEDS: PROPOFOL 100 ML IV SCH ×2 (00:12→20:00)
[2021-10-19 04:12] LABS: Basophils # (auto) 0 10 ^3/uL (0-0.2); Eosinophils # (auto) 0 10 ^3/uL (0-0.8); Eosinophils % (auto) 0.1 % (0.0-7.0); Hematocrit 34.3 % (41.0-53.0); Hemoglobin 11.3 g/dL (13.5-17.5); Lymphocytes # (auto) 0.3 10 ^3/uL (0.4-5.4); Lymphocytes % (auto) 2.4 % (10.0-50.0); Mean Corpuscular Hemoglobin 28.8 pg (28.0-32.0); Mean Corpuscular Hgb Conc. 32.9 g/dL (32.0-36.0); Mean Corpuscular Volume 87.6 fL (80.0-100.0); Monocytes # (auto) 0.5 10 ^3/uL (0-1.3); Monocytes % (auto) 4.9 % (0.0-12.0); Neutrophils # (auto) 10.1 10 ^3/uL (1.6-8.6); Neutrophils % (auto) 92.6 % (37.0-80.0); Red Blood Cells 3.92 10^6/uL (4.5-5.90); Red Cell Distribution Width 14.4 % (11.8-14.3); White Blood Cell 10.9 10^3/uL (4.4-10.8)
[2021-10-19 04:39] LABS: Calcium 8.3 mg/dL (8.5-10.1); Potassium 3.8 mmol/L (3.5-5.1)
[2021-10-19 04:47] LABS: BUN/Creatinine Ratio 69.6
[2021-10-19] MEDS: FUROSEMIDE 40 MG/4 ML VIAL IV SCH ×2 (05:35→17:45)
[2021-10-19] MEDS: SODIUM CHLOR 0.9% PF (SALINE LOCK) 10ML VIAL/SYR IV SCH ×3 (05:36→22:35)
[2021-10-19] MEDS: METOCLOPRAMIDE HCL 5MG/ml INJ 2ml VIAL IV SCH ×3 (05:36→22:35)
[2021-10-19] MEDS: cefTRIAXone 1GM/50ML D5W 50 ML IV SCH (07:42)
[2021-10-19] MEDS: DexAMETHasone SOD PHOS 10MG/1ML VIAL INJ IV SCH (09:22)
[2021-10-19] MEDS: ZINC SULFATE 220mg CAP or TAB PO SCH (09:23)
[2021-10-19] MEDS: ASPirin 81 mg TAB PO SCH (09:23)
[2021-10-19] MEDS: ASCORBIC ACID 1,000 MG TAB PO SCH (09:24)
[2021-10-19] MEDS: AZITHROMYCIN 500MG/ 250ML 250 ML IV SCH (09:24)
[2021-10-19] MEDS: CHOLECALCIFEROL (VITD3) 2,000 UNIT CAP/TAB PO SCH (10:00)
[2021-10-19] MEDS: ENOXAPARIN SOD 40 MG/0.4 ML SYRINGE SC SCH (10:00)
[2021-10-19] MEDS: MIDAZOLAM DRIP 50 mg/50mL 50 ML IV SCH (20:00)
[2021-10-19] MEDS: NOREPINEPHRINE 8 MG/250ML KIT 250 ML IV SCH (20:00)
[2021-10-19] MEDS: fentaNYL Drip 2500mCg/250mlNS 250 ML IV SCH (20:00)
[2021-10-19] MEDS: ATORVASTATIN 20 MG TAB PO SCH (22:37)
[2021-10-20] VITALS (47 sets, daily range): BP systolic 103–151; BP diastolic 62–88
[2021-10-20] MEDS: fentaNYL Drip 2500mCg/250mlNS 250 ML IV SCH ×3 (03:51→20:02)
[2021-10-20] MEDS: MIDAZOLAM DRIP 50 mg/50mL 50 ML IV SCH ×5 (03:51→22:07)
[2021-10-20] MEDS: PROPOFOL 100 ML IV SCH ×4 (03:52→22:06)
[2021-10-20 04:51] LABS: Basophils # (auto) 0 10 ^3/uL (0-0.2); Basophils % (auto) 0.1 % (0.0-2.0); Eosinophils # (auto) 0 10 ^3/uL (0-0.8); Eosinophils % (auto) 0.3 % (0.0-7.0); Hematocrit 34.2 % (41.0-53.0); Hemoglobin 11.2 g/dL (13.5-17.5); Lymphocytes # (auto) 0.4 10 ^3/uL (0.4-5.4); Lymphocytes % (auto) 3.4 % (10.0-50.0); Mean Corpuscular Hemoglobin 28.9 pg (28.0-32.0); Mean Corpuscular Hgb Conc. 32.9 g/dL (32.0-36.0); Mean Corpuscular Volume 87.9 fL (80.0-100.0); Monocytes # (auto) 0.4 10 ^3/uL (0-1.3); Monocytes % (auto) 3.3 % (0.0-12.0); Neutrophils # (auto) 10.5 10 ^3/uL (1.6-8.6); Neutrophils % (auto) 92.9 % (37.0-80.0); Nucleated Red Blood Cells % 0.1 %; Red Blood Cells 3.89 10^6/uL (4.5-5.90); Red Cell Distribution Width 14.5 % (11.8-14.3); White Blood Cell 11.3 10^3/uL (4.4-10.8)
[2021-10-20 05:14] LABS: BUN/Creatinine Ratio 68.6; Calcium 8.8 mg/dL (8.5-10.1); Potassium 3.8 mmol/L (3.5-5.1)
[2021-10-20] MEDS: FUROSEMIDE 40 MG/4 ML VIAL IV SCH ×2 (05:47→16:55)
[2021-10-20] MEDS: METOCLOPRAMIDE HCL 5MG/ml INJ 2ml VIAL IV SCH ×3 (05:47→21:33)
[2021-10-20] MEDS: ACCU-CHEK COMFORT CURVE STRIP VI SCH ×4 (05:48→23:41)
[2021-10-20] MEDS: InsuLIN REG 1unit/0.01ml Soln (100units/ml) SC SCH ×4 (05:48→23:38)
[2021-10-20] MEDS: SODIUM CHLOR 0.9% PF (SALINE LOCK) 10ML VIAL/SYR IV SCH ×3 (05:48→22:05)
[2021-10-20] MEDS: cefTRIAXone 1GM/50ML D5W 50 ML IV SCH (08:45)
[2021-10-20] MEDS: DexAMETHasone SOD PHOS 10MG/1ML VIAL INJ IV SCH (09:07)
[2021-10-20] MEDS: AZITHROMYCIN 500MG/ 250ML 250 ML IV SCH (09:07)
[2021-10-20] MEDS: CHOLECALCIFEROL (VITD3) 2,000 UNIT CAP/TAB PO SCH (09:08)
[2021-10-20] MEDS: ASCORBIC ACID 1,000 MG TAB PO SCH (09:08)
[2021-10-20] MEDS: ZINC SULFATE 220mg CAP or TAB PO SCH (09:08)
[2021-10-20] MEDS: ENOXAPARIN SOD 40 MG/0.4 ML SYRINGE SC SCH (09:08)
[2021-10-20] MEDS: ASPirin 81 mg TAB PO SCH (09:08)
[2021-10-20] MEDS: NOREPINEPHRINE 8 MG/250ML KIT 250 ML IV SCH (20:00)
[2021-10-20] MEDS: ATORVASTATIN 20 MG TAB PO SCH (21:33)
[2021-10-21] VITALS (27 sets, daily range): BP systolic 104–139; BP diastolic 66–81
[2021-10-21] MEDS: ACCU-CHEK COMFORT CURVE STRIP VI SCH ×3 (06:00→17:18)
[2021-10-21] MEDS: FUROSEMIDE 40 MG/4 ML VIAL IV SCH ×2 (06:16→17:17)
[2021-10-21] MEDS: SODIUM CHLOR 0.9% PF (SALINE LOCK) 10ML VIAL/SYR IV SCH ×3 (06:16→22:00)
[2021-10-21] MEDS: METOCLOPRAMIDE HCL 5MG/ml INJ 2ml VIAL IV SCH ×3 (06:16→22:00)
[2021-10-21] MEDS: InsuLIN REG 1unit/0.01ml Soln (100units/ml) SC SCH ×3 (06:17→17:18)
[2021-10-21] MEDS: cefTRIAXone 1GM/50ML D5W 50 ML IV SCH (08:29)
[2021-10-21] MEDS: CHOLECALCIFEROL (VITD3) 2,000 UNIT CAP/TAB PO SCH (09:02)
[2021-10-21] MEDS: ASCORBIC ACID 1,000 MG TAB PO SCH (09:02)
[2021-10-21] MEDS: ENOXAPARIN SOD 40 MG/0.4 ML SYRINGE SC SCH (09:02)
[2021-10-21] MEDS: DexAMETHasone SOD PHOS 10MG/1ML VIAL INJ IV SCH (09:03)
[2021-10-21] MEDS: AZITHROMYCIN 500MG/ 250ML 250 ML IV SCH (09:03)
[2021-10-21] MEDS: ASPirin 81 mg TAB PO SCH (09:03)
[2021-10-21] MEDS: ZINC SULFATE 220mg CAP or TAB PO SCH (09:05)
[2021-10-21] MEDS: ALBUTEROL SULF 2.5 MG/0.5ML(0.5%) NEB SOLN NEB PRN (09:46)
[2021-10-21] MEDS: PROPOFOL 100 ML IV SCH (11:15)
[2021-10-21] MEDS: MIDAZOLAM DRIP 50 mg/50mL 50 ML IV SCH ×2 (13:33→19:46)
[2021-10-21] MEDS: NOREPINEPHRINE 8 MG/250ML KIT 250 ML IV SCH (20:00)
[2021-10-21] MEDS: ATORVASTATIN 20 MG TAB PO SCH (22:00)
[2021-10-22] VITALS (27 sets, daily range): BP systolic 89–137; BP diastolic 52–80
[2021-10-22] MEDS: MIDAZOLAM DRIP 50 mg/50mL 50 ML IV SCH ×3 (03:10→16:54)
[2021-10-22] MEDS: PROPOFOL 100 ML IV SCH ×3 (04:24→16:53)
[2021-10-22] MEDS: fentaNYL Drip 2500mCg/250mlNS 250 ML IV SCH ×2 (04:43→16:53)
[2021-10-22] MEDS: ACCU-CHEK COMFORT CURVE STRIP VI SCH ×4 (06:00→16:47)
[2021-10-22 06:15] LABS: Hematocrit 33.7 % (41.0-53.0); Hemoglobin 11.3 g/dL (13.5-17.5); Mean Corpuscular Hemoglobin 29.9 pg (28.0-32.0); Mean Corpuscular Hgb Conc. 33.6 g/dL (32.0-36.0); Mean Corpuscular Volume 88.9 fL (80.0-100.0); Red Blood Cells 3.79 10^6/uL (4.5-5.90); Red Cell Distribution Width 14.6 % (11.8-14.3); White Blood Cell 12.8 10^3/uL (4.4-10.8)
[2021-10-22 06:16] LABS: Basophils % (manual) 0 (0.0-2.0); Blast Cells 0; Eosinophils % (manual) 0 (0-7); Metamyelocytes % 0; Myelocytes % 0; Promyelocytes % 0; Reactive Lymphocytes 0
[2021-10-22] MEDS: SODIUM CHLOR 0.9% PF (SALINE LOCK) 10ML VIAL/SYR IV SCH ×3 (06:29→22:00)
[2021-10-22] MEDS: FUROSEMIDE 40 MG/4 ML VIAL IV SCH ×2 (06:29→16:48)
[2021-10-22] MEDS: METOCLOPRAMIDE HCL 5MG/ml INJ 2ml VIAL IV SCH ×3 (06:29→22:00)
[2021-10-22] MEDS: InsuLIN REG 1unit/0.01ml Soln (100units/ml) SC SCH ×4 (06:30→16:47)
[2021-10-22 06:31] LABS: Potassium 3.3 mmol/L (3.5-5.1)
[2021-10-22] MEDS: ACETAMINOPHEN 500 MG TAB PO PRN (06:31)
[2021-10-22 06:34] LABS: Band Neutrophils % (manual) 2; Lymphocytes % (manual) 5 (10.0-50.0); Monocytes % (manual) 6 (0-12)
[2021-10-22 06:49] LABS: BUN/Creatinine Ratio 67.6; Calcium 8.3 mg/dL (8.5-10.1)
[2021-10-22] MEDS: cefTRIAXone 1GM/50ML D5W 50 ML IV SCH (08:37)
[2021-10-22] MEDS: DexAMETHasone SOD PHOS 4 MG/1ML SDV INJ IV SCH (08:44)
[2021-10-22] MEDS: ASPirin 81 mg TAB PO SCH (08:44)
[2021-10-22] MEDS: ENOXAPARIN SOD 40 MG/0.4 ML SYRINGE SC SCH (08:45)
[2021-10-22] MEDS: AZITHROMYCIN 500MG/ 250ML 250 ML IV SCH (09:32)
[2021-10-22] MEDS ORDERED: POTASSIUM EFFERVESENT TAB 25 MEQ GT ONE (12:00)
[2021-10-22] MEDS: NOREPINEPHRINE 8 MG/250ML KIT 250 ML IV SCH (20:00)
[2021-10-22] MEDS: ATORVASTATIN 20 MG TAB PO SCH (22:00)
[2021-10-23] VITALS (60 sets, daily range): BP systolic 91–138; BP diastolic 54–79
[2021-10-23] MEDS: ACCU-CHEK COMFORT CURVE STRIP VI SCH ×5 (00:05→23:28)
[2021-10-23] MEDS: InsuLIN REG 1unit/0.01ml Soln (100units/ml) SC SCH ×5 (00:05→23:29)
[2021-10-23] MEDS: MIDAZOLAM DRIP 50 mg/50mL 50 ML IV SCH ×5 (00:49→20:46)
[2021-10-23] MEDS: PROPOFOL 100 ML IV SCH ×4 (02:56→19:56)
[2021-10-23] MEDS: fentaNYL Drip 2500mCg/250mlNS 250 ML IV SCH ×2 (05:30→17:27)
[2021-10-23] MEDS: FUROSEMIDE 40 MG/4 ML VIAL IV SCH ×2 (06:09→17:31)
[2021-10-23] MEDS: SODIUM CHLOR 0.9% PF (SALINE LOCK) 10ML VIAL/SYR IV SCH ×3 (06:09→22:00)
[2021-10-23] MEDS: METOCLOPRAMIDE HCL 5MG/ml INJ 2ml VIAL IV SCH ×3 (06:09→22:00)
[2021-10-23] MEDS: cefTRIAXone 1GM/50ML D5W 50 ML IV SCH (09:35)
[2021-10-23] MEDS: ASPirin 81 mg TAB PO SCH (09:57)
[2021-10-23] MEDS: AZITHROMYCIN 500MG/ 250ML 250 ML IV SCH (09:57)
[2021-10-23] MEDS: DexAMETHasone SOD PHOS 4 MG/1ML SDV INJ IV SCH (09:57)
[2021-10-23] MEDS: ENOXAPARIN SOD 40 MG/0.4 ML SYRINGE SC SCH (09:57)
[2021-10-23] MEDS: NOREPINEPHRINE 8 MG/250ML KIT 250 ML IV SCH (20:00)
[2021-10-23] MEDS: ATORVASTATIN 20 MG TAB PO SCH (22:00)
[2021-10-24] VITALS (61 sets, daily range): BP systolic 93–132; BP diastolic 48–74
[2021-10-24] MEDS: MIDAZOLAM DRIP 50 mg/50mL 50 ML IV SCH ×5 (01:43→21:21)
[2021-10-24] MEDS: PROPOFOL 100 ML IV SCH ×4 (01:43→23:25)
[2021-10-24 05:02] LABS: Basophils # (auto) 0 10 ^3/uL (0-0.2); Basophils % (auto) 0.1 % (0.0-2.0); Eosinophils # (auto) 0.1 10 ^3/uL (0-0.8); Eosinophils % (auto) 0.5 % (0.0-7.0); Hematocrit 32.9 % (41.0-53.0); Hemoglobin 10.7 g/dL (13.5-17.5); Lymphocytes # (auto) 0.6 10 ^3/uL (0.4-5.4); Lymphocytes % (auto) 4.9 % (10.0-50.0); Mean Corpuscular Hemoglobin 28.8 pg (28.0-32.0); Mean Corpuscular Hgb Conc. 32.6 g/dL (32.0-36.0); Mean Corpuscular Volume 88.4 fL (80.0-100.0); Monocytes # (auto) 0.3 10 ^3/uL (0-1.3); Monocytes % (auto) 2.7 % (0.0-12.0); Neutrophils # (auto) 10.8 10 ^3/uL (1.6-8.6); Neutrophils % (auto) 91.8 % (37.0-80.0); Red Blood Cells 3.72 10^6/uL (4.5-5.90); Red Cell Distribution Width 14.8 % (11.8-14.3); White Blood Cell 11.8 10^3/uL (4.4-10.8)
[2021-10-24 05:22] LABS: Albumin 2.3 g/dL (3.4-5.0); Calcium 9.2 mg/dL (8.5-10.1); Potassium 3.4 mmol/L (3.5-5.1)
[2021-10-24 05:25] LABS: BUN/Creatinine Ratio 52.7; Bilirubin, Total 0.5 mg/dL (0.2-1.0); Total Protein 6.8 g/dL (6.4-8.2)
[2021-10-24] MEDS: FUROSEMIDE 40 MG/4 ML VIAL IV SCH ×2 (06:27→17:48)
[2021-10-24] MEDS: ACCU-CHEK COMFORT CURVE STRIP VI SCH ×3 (06:27→17:36)
[2021-10-24] MEDS: METOCLOPRAMIDE HCL 5MG/ml INJ 2ml VIAL IV SCH ×3 (06:27→22:00)
[2021-10-24] MEDS: InsuLIN REG 1unit/0.01ml Soln (100units/ml) SC SCH ×3 (06:28→18:30)
[2021-10-24] MEDS: fentaNYL Drip 2500mCg/250mlNS 250 ML IV SCH ×2 (06:28→19:05)
[2021-10-24] MEDS: SODIUM CHLOR 0.9% PF (SALINE LOCK) 10ML VIAL/SYR IV SCH ×3 (06:29→22:00)
[2021-10-24] MEDS: AZITHROMYCIN 500MG/ 250ML 250 ML IV SCH (10:48)
[2021-10-24] MEDS: DexAMETHasone SOD PHOS 4 MG/1ML SDV INJ IV SCH (10:48)
[2021-10-24] MEDS: ENOXAPARIN SOD 40 MG/0.4 ML SYRINGE SC SCH (10:48)
[2021-10-24] MEDS: ASPirin 81 mg TAB PO SCH (10:48)
[2021-10-24] MEDS: cefTRIAXone 1GM/50ML D5W 50 ML IV SCH (10:48)
[2021-10-24] MEDS: ALBUTEROL SULF 2.5 MG/0.5ML(0.5%) NEB SOLN NEB PRN (18:15)
[2021-10-24] MEDS: NOREPINEPHRINE 8 MG/250ML KIT 250 ML IV SCH (20:00)
[2021-10-24] MEDS: ATORVASTATIN 20 MG TAB PO SCH (22:00)
[2021-10-25] VITALS (19 sets, daily range): BP systolic 102–136; BP diastolic 52–82
[2021-10-25] MEDS: MIDAZOLAM DRIP 50 mg/50mL 50 ML IV SCH ×3 (02:00→20:53)
[2021-10-25] MEDS: PROPOFOL 100 ML IV SCH ×3 (04:02→22:45)
[2021-10-25] MEDS: InsuLIN REG 1unit/0.01ml Soln (100units/ml) SC SCH ×4 (06:00→17:20)
[2021-10-25] MEDS: FUROSEMIDE 40 MG/4 ML VIAL IV SCH ×2 (06:08→19:00)
[2021-10-25] MEDS: METOCLOPRAMIDE HCL 5MG/ml INJ 2ml VIAL IV SCH ×3 (06:08→22:00)
[2021-10-25] MEDS: SODIUM CHLOR 0.9% PF (SALINE LOCK) 10ML VIAL/SYR IV SCH ×3 (06:09→22:00)
[2021-10-25] MEDS: ACCU-CHEK COMFORT CURVE STRIP VI SCH ×4 (06:09→17:20)
[2021-10-25] MEDS: fentaNYL Drip 2500mCg/250mlNS 250 ML IV SCH ×2 (06:58→20:30)
[2021-10-25] MEDS: cefTRIAXone 1GM/50ML D5W 50 ML IV SCH (09:14)
[2021-10-25] MEDS: AZITHROMYCIN 500MG/ 250ML 250 ML IV SCH (09:56)
[2021-10-25] MEDS: ENOXAPARIN SOD 40 MG/0.4 ML SYRINGE SC SCH (09:56)
[2021-10-25] MEDS: ASPirin 81 mg TAB PO SCH (09:56)
[2021-10-25] MEDS: DexAMETHasone SOD PHOS 4 MG/1ML SDV INJ IV SCH (09:56)
[2021-10-25 13:02] LABS: Basophils # (auto) 0 10 ^3/uL (0-0.2); Basophils % (auto) 0.2 % (0.0-2.0); Eosinophils # (auto) 0.1 10 ^3/uL (0-0.8); Hematocrit 31.7 % (41.0-53.0); Hemoglobin 10.3 g/dL (13.5-17.5); Lymphocytes # (auto) 0.4 10 ^3/uL (0.4-5.4); Lymphocytes % (auto) 2.8 % (10.0-50.0); Mean Corpuscular Hemoglobin 28.7 pg (28.0-32.0); Mean Corpuscular Hgb Conc. 32.4 g/dL (32.0-36.0); Mean Corpuscular Volume 88.6 fL (80.0-100.0); Monocytes # (auto) 0.5 10 ^3/uL (0-1.3); Monocytes % (auto) 3.7 % (0.0-12.0); Neutrophils # (auto) 12.1 10 ^3/uL (1.6-8.6); Neutrophils % (auto) 92.3 % (37.0-80.0); Red Blood Cells 3.58 10^6/uL (4.5-5.90); Red Cell Distribution Width 14.6 % (11.8-14.3); White Blood Cell 13.1 10^3/uL (4.4-10.8)
[2021-10-25 13:14] LABS: Albumin 2.1 g/dL (3.4-5.0); BUN/Creatinine Ratio 51.6; Calcium 8.6 mg/dL (8.5-10.1); Potassium 3.4 mmol/L (3.5-5.1)
[2021-10-25 13:17] LABS: Bilirubin, Total 0.5 mg/dL (0.2-1.0); Total Protein 5.6 g/dL (6.4-8.2)
[2021-10-25] MEDS: NOREPINEPHRINE 8 MG/250ML KIT 250 ML IV SCH (20:00)
[2021-10-25] MEDS: ATORVASTATIN 20 MG TAB PO SCH (22:00)
[2021-10-26] VITALS (21 sets, daily range): BP systolic 96–144; BP diastolic 56–79
[2021-10-26] MEDS: MIDAZOLAM DRIP 50 mg/50mL 50 ML IV SCH ×5 (01:19→23:31)
[2021-10-26] MEDS: PROPOFOL 100 ML IV SCH ×2 (02:27→23:00)
[2021-10-26] MEDS: FUROSEMIDE 40 MG/4 ML VIAL IV SCH ×2 (05:57→18:22)
[2021-10-26] MEDS: METOCLOPRAMIDE HCL 5MG/ml INJ 2ml VIAL IV SCH ×3 (05:57→22:00)
[2021-10-26] MEDS: SODIUM CHLOR 0.9% PF (SALINE LOCK) 10ML VIAL/SYR IV SCH ×3 (05:57→22:00)
[2021-10-26] MEDS: InsuLIN REG 1unit/0.01ml Soln (100units/ml) SC SCH ×4 (05:58→18:23)
[2021-10-26] MEDS: ACCU-CHEK COMFORT CURVE STRIP VI SCH ×4 (05:58→18:23)
[2021-10-26 06:43] LABS: Basophils # (auto) 0 10 ^3/uL (0-0.2); Basophils % (auto) 0.4 % (0.0-2.0); Eosinophils # (auto) 0.2 10 ^3/uL (0-0.8); Hematocrit 28.6 % (41.0-53.0); Hemoglobin 9.9 g/dL (13.5-17.5); Lymphocytes # (auto) 0.7 10 ^3/uL (0.4-5.4); Lymphocytes % (auto) 7.6 % (10.0-50.0); Mean Corpuscular Hemoglobin 30.7 pg (28.0-32.0); Mean Corpuscular Hgb Conc. 34.6 g/dL (32.0-36.0); Mean Corpuscular Volume 88.9 fL (80.0-100.0); Monocytes # (auto) 0.3 10 ^3/uL (0-1.3); Monocytes % (auto) 2.8 % (0.0-12.0); Neutrophils # (auto) 8.4 10 ^3/uL (1.6-8.6); Neutrophils % (auto) 87.2 % (37.0-80.0); Nucleated Red Blood Cells % 0.1 %; Red Blood Cells 3.22 10^6/uL (4.5-5.90); Red Cell Distribution Width 14.7 % (11.8-14.3); White Blood Cell 9.6 10^3/uL (4.4-10.8)
[2021-10-26 07:16] LABS: Albumin 1.9 g/dL (3.4-5.0); Calcium 7.6 mg/dL (8.5-10.1)
[2021-10-26 07:19] LABS: Bilirubin, Total 0.6 mg/dL (0.2-1.0)
[2021-10-26 07:28] LABS: BUN/Creatinine Ratio 58.8
[2021-10-26 07:31] LABS: Potassium 2.8 mmol/L (3.5-5.1)
[2021-10-26] MEDS: cefTRIAXone 1GM/50ML D5W 50 ML IV SCH (09:24)
[2021-10-26] MEDS: DexAMETHasone SOD PHOS 4 MG/1ML SDV INJ IV SCH (09:26)
[2021-10-26] MEDS: ASPirin 81 mg TAB PO SCH (09:27)
[2021-10-26] MEDS: ENOXAPARIN SOD 40 MG/0.4 ML SYRINGE SC SCH (09:32)
[2021-10-26] MEDS: AZITHROMYCIN 500MG/ 250ML 250 ML IV SCH (10:00)
[2021-10-26] MEDS: POTASSIUM CHL 10MEQ/50ML 50 ML IV SCH ×6 (13:00→18:44)
[2021-10-26] MEDS ORDERED: POTASSIUM CHL 20 Meq TABLET PO PRN (18:30)
[2021-10-26] MEDS: ALBUTEROL SULF 2.5 MG/0.5ML(0.5%) NEB SOLN NEB PRN (19:11)
[2021-10-26] MEDS: fentaNYL Drip 2500mCg/250mlNS 250 ML IV SCH (19:54)
[2021-10-26] MEDS: NOREPINEPHRINE 8 MG/250ML KIT 250 ML IV SCH (20:00)
[2021-10-26] MEDS: ATORVASTATIN 20 MG TAB PO SCH (22:00)
[2021-10-27] VITALS (28 sets, daily range): BP systolic 96–153; BP diastolic 51–87
[2021-10-27] MEDS: InsuLIN REG 1unit/0.01ml Soln (100units/ml) SC SCH ×4 (00:28→18:22)
[2021-10-27] MEDS: ACCU-CHEK COMFORT CURVE STRIP VI SCH ×4 (00:29→17:30)
[2021-10-27] MEDS: MIDAZOLAM DRIP 50 mg/50mL 50 ML IV SCH ×4 (00:55→21:55)
[2021-10-27] MEDS: PROPOFOL 100 ML IV SCH ×4 (01:46→19:55)
[2021-10-27] MEDS: SODIUM CHLOR 0.9% PF (SALINE LOCK) 10ML VIAL/SYR IV SCH ×3 (06:09→23:00)
[2021-10-27] MEDS: METOCLOPRAMIDE HCL 5MG/ml INJ 2ml VIAL IV SCH ×3 (06:09→23:00)
[2021-10-27] MEDS: FUROSEMIDE 40 MG/4 ML VIAL IV SCH ×2 (06:09→18:25)
[2021-10-27 06:30] LABS: Basophils # (auto) 0 10 ^3/uL (0-0.2); Basophils % (auto) 0.2 % (0.0-2.0); Eosinophils # (auto) 0.2 10 ^3/uL (0-0.8); Eosinophils % (auto) 2.1 % (0.0-7.0); Hematocrit 28.8 % (41.0-53.0); Hemoglobin 9.8 g/dL (13.5-17.5); Lymphocytes # (auto) 0.8 10 ^3/uL (0.4-5.4); Lymphocytes % (auto) 7.8 % (10.0-50.0); Mean Corpuscular Hgb Conc. 33.9 g/dL (32.0-36.0); Mean Corpuscular Volume 88.6 fL (80.0-100.0); Monocytes # (auto) 0.3 10 ^3/uL (0-1.3); Monocytes % (auto) 2.8 % (0.0-12.0); Neutrophils # (auto) 8.7 10 ^3/uL (1.6-8.6); Neutrophils % (auto) 87.1 % (37.0-80.0); Red Blood Cells 3.25 10^6/uL (4.5-5.90); Red Cell Distribution Width 14.7 % (11.8-14.3)
[2021-10-27] MEDS: ALBUTEROL SULF 2.5 MG/0.5ML(0.5%) NEB SOLN NEB PRN ×2 (06:42→19:09)
[2021-10-27 06:45] LABS: Potassium 3.1 mmol/L (3.5-5.1)
[2021-10-27 06:49] LABS: Bilirubin, Total 0.6 mg/dL (0.2-1.0)
[2021-10-27 06:57] LABS: BUN/Creatinine Ratio 64.9
[2021-10-27] MEDS: ASPirin 81 mg TAB PO SCH (08:22)
[2021-10-27] MEDS: ENOXAPARIN SOD 40 MG/0.4 ML SYRINGE SC SCH (08:22)
[2021-10-27] MEDS: DexAMETHasone SOD PHOS 4 MG/1ML SDV INJ IV SCH (08:23)
[2021-10-27] MEDS: cefTRIAXone 1GM/50ML D5W 50 ML IV SCH (09:14)
[2021-10-27] MEDS: AZITHROMYCIN 500MG/ 250ML 250 ML IV SCH (10:00)
[2021-10-27] MEDS: ACETAMINOPHEN 500 MG TAB PO PRN (12:53)
[2021-10-27] MEDS ORDERED: POTASSIUM EFFERVESENT TAB 25 MEQ ONE (13:04)
[2021-10-27] MEDS: POTASSIUM CHL 10MEQ/50ML 50 ML IV SCH ×4 (13:47→16:41)
[2021-10-27] MEDS ORDERED: POTASSIUM CHL 20 Meq TABLET PO ONE (19:00)
[2021-10-27] MEDS: fentaNYL Drip 2500mCg/250mlNS 250 ML IV SCH (20:00)
[2021-10-27] MEDS: NOREPINEPHRINE 8 MG/250ML KIT 250 ML IV SCH (20:00)
[2021-10-27] MEDS: PANTOPRAZOLE 40 MG/10 ML VIAL INJ IV SCH ×2 (22:00→22:59)
[2021-10-27] MEDS: ATORVASTATIN 20 MG TAB PO SCH (23:01)
[2021-10-28] VITALS (64 sets, daily range): BP systolic 95–147; BP diastolic 50–92
[2021-10-28] MEDS: ACCU-CHEK COMFORT CURVE STRIP VI SCH ×4 (00:07→17:43)
[2021-10-28] MEDS: InsuLIN REG 1unit/0.01ml Soln (100units/ml) SC SCH ×4 (00:09→17:47)
[2021-10-28] MEDS: MIDAZOLAM DRIP 50 mg/50mL 50 ML IV SCH ×5 (00:55→21:55)
[2021-10-28] MEDS: PROPOFOL 100 ML IV SCH ×5 (01:55→23:16)
[2021-10-28 04:43] LABS: Basophils # (auto) 0 10 ^3/uL (0-0.2); Basophils % (auto) 0.2 % (0.0-2.0); Eosinophils # (auto) 0.2 10 ^3/uL (0-0.8); Eosinophils % (auto) 2.3 % (0.0-7.0); Hematocrit 27.2 % (41.0-53.0); Lymphocytes # (auto) 0.8 10 ^3/uL (0.4-5.4); Mean Corpuscular Hemoglobin 29.4 pg (28.0-32.0); Mean Corpuscular Hgb Conc. 33.3 g/dL (32.0-36.0); Mean Corpuscular Volume 88.3 fL (80.0-100.0); Monocytes # (auto) 0.4 10 ^3/uL (0-1.3); Monocytes % (auto) 3.7 % (0.0-12.0); Neutrophils # (auto) 8.4 10 ^3/uL (1.6-8.6); Neutrophils % (auto) 85.8 % (37.0-80.0); Red Blood Cells 3.08 10^6/uL (4.5-5.90); Red Cell Distribution Width 14.4 % (11.8-14.3); White Blood Cell 9.8 10^3/uL (4.4-10.8)
[2021-10-28 04:59] LABS: Albumin 1.9 g/dL (3.4-5.0); Calcium 8.3 mg/dL (8.5-10.1); Potassium 3.3 mmol/L (3.5-5.1)
[2021-10-28 05:02] LABS: Bilirubin, Total 0.4 mg/dL (0.2-1.0); Total Protein 5.7 g/dL (6.4-8.2)
[2021-10-28] MEDS: ROCURONIUM 10MG/ML 10ML VIAL IV PRN ×3 (06:34→10:41)
[2021-10-28] MEDS: METOCLOPRAMIDE HCL 5MG/ml INJ 2ml VIAL IV SCH ×3 (06:35→22:10)
[2021-10-28] MEDS: SODIUM CHLOR 0.9% PF (SALINE LOCK) 10ML VIAL/SYR IV SCH ×3 (06:36→22:10)
[2021-10-28] MEDS: fentaNYL Drip 2500mCg/250mlNS 250 ML IV SCH ×3 (09:24→17:36)
[2021-10-28] MEDS: ALBUTEROL SULF 2.5 MG/0.5ML(0.5%) NEB SOLN NEB PRN (09:25)
[2021-10-28] MEDS: PANTOPRAZOLE 40 MG/10 ML VIAL INJ IV SCH ×2 (09:33→22:09)
[2021-10-28] MEDS: DexAMETHasone SOD PHOS 4 MG/1ML SDV INJ IV SCH (09:33)
[2021-10-28] MEDS: ROCURONIUM BROMIDE 1,000 MG in D5W 5% 150 ML IV SCH (11:55)
[2021-10-28] MEDS: POTASSIUM CHL 10MEQ/50ML 50 ML IV SCH ×2 (14:57→16:00)
[2021-10-28] MEDS: NOREPINEPHRINE 8 MG/250ML KIT 250 ML IV SCH (20:00)
[2021-10-28] MEDS: ATORVASTATIN 20 MG TAB PO SCH (22:00)
[2021-10-29] VITALS (54 sets, daily range): BP systolic 88–127; BP diastolic 46–70
[2021-10-29] MEDS: ACCU-CHEK COMFORT CURVE STRIP VI SCH ×4 (00:01→17:04)
[2021-10-29] MEDS: MIDAZOLAM DRIP 50 mg/50mL 50 ML IV SCH ×6 (00:55→21:15)
[2021-10-29] MEDS: fentaNYL Drip 2500mCg/250mlNS 250 ML IV SCH ×3 (01:55→18:24)
[2021-10-29] MEDS: PROPOFOL 100 ML IV SCH ×6 (02:55→22:15)
[2021-10-29 05:22] LABS: Basophils # (auto) 0 10 ^3/uL (0-0.2); Basophils % (auto) 0.2 % (0.0-2.0); Eosinophils # (auto) 0.3 10 ^3/uL (0-0.8); Eosinophils % (auto) 3.6 % (0.0-7.0); Hematocrit 25.3 % (41.0-53.0); Hemoglobin 8.7 g/dL (13.5-17.5); Lymphocytes # (auto) 0.6 10 ^3/uL (0.4-5.4); Lymphocytes % (auto) 7.3 % (10.0-50.0); Mean Corpuscular Hemoglobin 30.8 pg (28.0-32.0); Mean Corpuscular Hgb Conc. 34.4 g/dL (32.0-36.0); Mean Corpuscular Volume 89.7 fL (80.0-100.0); Monocytes # (auto) 0.3 10 ^3/uL (0-1.3); Monocytes % (auto) 3.4 % (0.0-12.0); Neutrophils # (auto) 6.8 10 ^3/uL (1.6-8.6); Neutrophils % (auto) 85.5 % (37.0-80.0); Red Blood Cells 2.81 10^6/uL (4.5-5.90); Red Cell Distribution Width 14.5 % (11.8-14.3)
[2021-10-29 05:49] LABS: Potassium 3.9 mmol/L (3.5-5.1)
[2021-10-29 06:00] LABS: Albumin 1.9 g/dL (3.4-5.0); BUN/Creatinine Ratio 63.9; Bilirubin, Total 0.7 mg/dL (0.2-1.0); Calcium 7.4 mg/dL (8.5-10.1); Total Protein 4.9 g/dL (6.4-8.2)
[2021-10-29] MEDS: InsuLIN REG 1unit/0.01ml Soln (100units/ml) SC SCH ×5 (06:00→17:14)
[2021-10-29] MEDS: METOCLOPRAMIDE HCL 5MG/ml INJ 2ml VIAL IV SCH ×3 (06:27→21:46)
[2021-10-29] MEDS: SODIUM CHLOR 0.9% PF (SALINE LOCK) 10ML VIAL/SYR IV SCH ×3 (06:27→21:46)
[2021-10-29] MEDS: ROCURONIUM BROMIDE 1,000 MG in D5W 5% 150 ML IV SCH (08:00)
[2021-10-29] MEDS: DexAMETHasone SOD PHOS 4 MG/1ML SDV INJ IV SCH (10:21)
[2021-10-29] MEDS: PANTOPRAZOLE 40 MG/10 ML VIAL INJ IV SCH ×2 (10:22→21:46)
[2021-10-29] MEDS: NOREPINEPHRINE 8 MG/250ML KIT 250 ML IV SCH (20:00)
[2021-10-29] MEDS: ATORVASTATIN 20 MG TAB PO SCH (21:47)
[2021-10-30] VITALS (25 sets, daily range): BP systolic 97–118; BP diastolic 47–59
[2021-10-30] MEDS: InsuLIN REG 1unit/0.01ml Soln (100units/ml) SC SCH ×5 (00:23→23:20)
[2021-10-30] MEDS: ACCU-CHEK COMFORT CURVE STRIP VI SCH ×5 (00:23→23:20)
[2021-10-30] MEDS: MIDAZOLAM DRIP 50 mg/50mL 50 ML IV SCH ×5 (00:50→23:19)
[2021-10-30] MEDS: ROCURONIUM BROMIDE 1,000 MG in D5W 5% 150 ML IV SCH ×2 (01:50→15:36)
[2021-10-30] MEDS: PROPOFOL 100 ML IV SCH ×7 (01:50→23:18)
[2021-10-30] MEDS: fentaNYL Drip 2500mCg/250mlNS 250 ML IV SCH ×3 (02:15→20:30)
[2021-10-30 04:32] LABS: Basophils # (auto) 0 10 ^3/uL (0-0.2); Eosinophils # (auto) 0.1 10 ^3/uL (0-0.8); Lymphocytes # (auto) 0.5 10 ^3/uL (0.4-5.4); Mean Corpuscular Volume 89.7 fL (80.0-100.0); Monocytes # (auto) 0.3 10 ^3/uL (0-1.3); Nucleated Red Blood Cells % 0.1 %; White Blood Cell 6.9 10^3/uL (4.4-10.8)
[2021-10-30 04:34] LABS: Basophils % (auto) 0.3 % (0.0-2.0); Eosinophils % (auto) 1.7 % (0.0-7.0); Hematocrit 24.7 % (41.0-53.0); Hemoglobin 8.3 g/dL (13.5-17.5); Lymphocytes % (auto) 7.5 % (10.0-50.0); Mean Corpuscular Hemoglobin 30.1 pg (28.0-32.0); Mean Corpuscular Hgb Conc. 33.5 g/dL (32.0-36.0); Monocytes % (auto) 4.4 % (0.0-12.0); Neutrophils % (auto) 86.1 % (37.0-80.0); Red Blood Cells 2.75 10^6/uL (4.5-5.90); Red Cell Distribution Width 14.3 % (11.8-14.3)
[2021-10-30 04:51] LABS: Albumin 1.9 g/dL (3.4-5.0); BUN/Creatinine Ratio 37.9; Potassium 4.2 mmol/L (3.5-5.1)
[2021-10-30 04:54] LABS: Bilirubin, Total 0.4 mg/dL (0.2-1.0); Total Protein 5.4 g/dL (6.4-8.2)
[2021-10-30] MEDS: METOCLOPRAMIDE HCL 5MG/ml INJ 2ml VIAL IV SCH ×3 (06:26→23:01)
[2021-10-30] MEDS: SODIUM CHLOR 0.9% PF (SALINE LOCK) 10ML VIAL/SYR IV SCH ×3 (06:27→23:02)
[2021-10-30] MEDS: ALBUTEROL SULF 2.5 MG/0.5ML(0.5%) NEB SOLN NEB PRN (07:20)
[2021-10-30] MEDS: DexAMETHasone SOD PHOS 4 MG/1ML SDV INJ IV SCH (10:00)
[2021-10-30] MEDS: PANTOPRAZOLE 40 MG/10 ML VIAL INJ IV SCH ×2 (10:00→23:01)
[2021-10-30] MEDS: NOREPINEPHRINE 8 MG/250ML KIT 250 ML IV SCH (20:00)
[2021-10-30] MEDS: ATORVASTATIN 20 MG TAB PO SCH (23:15)
[2021-10-31] VITALS (19 sets, daily range): BP systolic 103–147; BP diastolic 54–74
[2021-10-31 04:04] LABS: Basophils # (auto) 0 10 ^3/uL (0-0.2); Basophils % (auto) 0.2 % (0.0-2.0); Eosinophils # (auto) 0.1 10 ^3/uL (0-0.8); Eosinophils % (auto) 2.3 % (0.0-7.0); Hematocrit 22.8 % (41.0-53.0); Hemoglobin 7.7 g/dL (13.5-17.5); Lymphocytes # (auto) 0.6 10 ^3/uL (0.4-5.4); Mean Corpuscular Hemoglobin 30.2 pg (28.0-32.0); Mean Corpuscular Hgb Conc. 33.6 g/dL (32.0-36.0); Mean Corpuscular Volume 89.8 fL (80.0-100.0); Monocytes # (auto) 0.2 10 ^3/uL (0-1.3); Neutrophils # (auto) 4.8 10 ^3/uL (1.6-8.6); Neutrophils % (auto) 82.5 % (37.0-80.0); Nucleated Red Blood Cells % 0.1 %; Red Blood Cells 2.54 10^6/uL (4.5-5.90); Red Cell Distribution Width 14.8 % (11.8-14.3); White Blood Cell 5.8 10^3/uL (4.4-10.8)
[2021-10-31 04:14] LABS: Albumin 1.9 g/dL (3.4-5.0); Calcium 7.6 mg/dL (8.5-10.1); Potassium 3.6 mmol/L (3.5-5.1)
[2021-10-31 04:19] LABS: BUN/Creatinine Ratio 36.4; Bilirubin, Total 0.4 mg/dL (0.2-1.0); Total Protein 5.2 g/dL (6.4-8.2)
[2021-10-31] MEDS: ACCU-CHEK COMFORT CURVE STRIP VI SCH ×4 (06:00→23:36)
[2021-10-31] MEDS: SODIUM CHLOR 0.9% PF (SALINE LOCK) 10ML VIAL/SYR IV SCH ×3 (06:00→22:05)
[2021-10-31] MEDS: InsuLIN REG 1unit/0.01ml Soln (100units/ml) SC SCH ×3 (06:00→18:00)
[2021-10-31] MEDS: METOCLOPRAMIDE HCL 5MG/ml INJ 2ml VIAL IV SCH ×3 (06:30→22:04)
[2021-10-31] MEDS: MIDAZOLAM DRIP 50 mg/50mL 50 ML IV SCH ×4 (06:32→22:04)
[2021-10-31] MEDS: PROPOFOL 100 ML IV SCH ×3 (06:32→22:15)
[2021-10-31] MEDS: fentaNYL Drip 2500mCg/250mlNS 250 ML IV SCH ×3 (06:34→23:34)
[2021-10-31] MEDS: DexAMETHasone SOD PHOS 4 MG/1ML SDV INJ IV SCH (10:00)
[2021-10-31] MEDS: ROCURONIUM BROMIDE 1,000 MG in D5W 5% 150 ML IV SCH (10:00)
[2021-10-31] MEDS: PANTOPRAZOLE 40 MG/10 ML VIAL INJ IV SCH ×2 (10:00→22:04)
[2021-10-31 16:36] LABS: % Iron Saturation 18.6 % (20-55)
[2021-10-31 16:44] LABS: Folate (Folic Acid) 10.72 ng/mL (5.38-24)
[2021-10-31] MEDS: NOREPINEPHRINE 8 MG/250ML KIT 250 ML IV SCH (19:46)
[2021-10-31] MEDS: ATORVASTATIN 20 MG TAB PO SCH (22:05)
[2021-10-31] MEDS: ROCURONIUM 10MG/ML 10ML VIAL IV PRN (23:36)
[2021-11-01] VITALS (18 sets, daily range): BP systolic 105–153; BP diastolic 50–69
[2021-11-01] MEDS: fentaNYL Drip 2500mCg/250mlNS 250 ML IV SCH ×2 (06:04→15:40)
[2021-11-01] MEDS: InsuLIN REG 1unit/0.01ml Soln (100units/ml) SC SCH ×4 (06:42→17:57)
[2021-11-01] MEDS: ACCU-CHEK COMFORT CURVE STRIP VI SCH ×4 (06:42→23:00)
[2021-11-01] MEDS: METOCLOPRAMIDE HCL 5MG/ml INJ 2ml VIAL IV SCH ×3 (06:43→22:55)
[2021-11-01] MEDS: SODIUM CHLOR 0.9% PF (SALINE LOCK) 10ML VIAL/SYR IV SCH ×3 (06:43→22:56)
[2021-11-01] MEDS: PROPOFOL 100 ML IV SCH ×5 (06:51→23:00)
[2021-11-01 07:39] LABS: Basophils # (auto) 0 10 ^3/uL (0-0.2); Eosinophils # (auto) 0.4 10 ^3/uL (0-0.8); Hematocrit 25.2 % (41.0-53.0); Lymphocytes # (auto) 0.8 10 ^3/uL (0.4-5.4); Mean Corpuscular Volume 89.5 fL (80.0-100.0); Monocytes # (auto) 0.3 10 ^3/uL (0-1.3); Nucleated Red Blood Cells % 0.1 %; Red Blood Cells 2.81 10^6/uL (4.5-5.90); White Blood Cell 7.4 10^3/uL (4.4-10.8)
[2021-11-01 07:42] LABS: Basophils % (auto) 0.1 % (0.0-2.0); Eosinophils % (auto) 5.4 % (0.0-7.0); Hemoglobin 8.3 g/dL (13.5-17.5); Lymphocytes % (auto) 10.9 % (10.0-50.0); Mean Corpuscular Hemoglobin 29.6 pg (28.0-32.0); Mean Corpuscular Hgb Conc. 33.1 g/dL (32.0-36.0); Monocytes % (auto) 4.1 % (0.0-12.0); Neutrophils # (auto) 5.9 10 ^3/uL (1.6-8.6); Neutrophils % (auto) 79.5 % (37.0-80.0); Red Cell Distribution Width 14.9 % (11.8-14.3)
[2021-11-01 07:58] LABS: Calcium 7.8 mg/dL (8.5-10.1); Potassium 3.2 mmol/L (3.5-5.1)
[2021-11-01 08:03] LABS: BUN/Creatinine Ratio 27.5; Bilirubin, Total 1.1 mg/dL (0.2-1.0); Total Protein 5.5 g/dL (6.4-8.2)
[2021-11-01] MEDS: MIDAZOLAM DRIP 50 mg/50mL 50 ML IV SCH ×4 (09:00→22:58)
[2021-11-01] MEDS: PANTOPRAZOLE 40 MG/10 ML VIAL INJ IV SCH ×2 (10:10→22:55)
[2021-11-01] MEDS: DexAMETHasone SOD PHOS 4 MG/1ML SDV INJ IV SCH (10:10)
[2021-11-01] MEDS ORDERED: TPN PER PHARMACY 0 ML IV SCH (11:00)
[2021-11-01] MEDS ORDERED: POTASSIUM CHL 10MEQ/50ML 150 ML IV ONE (11:00)
[2021-11-01] MEDS: POTASSIUM CHL 10MEQ/50ML 50 ML IV SCH ×3 (11:23→13:10)
[2021-11-01 12:09] LABS: Phosphorus 3.3 mg/dL (2.5-4.90); Pre Albumin 27.6 mg/dL (20.0-40.0)
[2021-11-01] MEDS: SODIUM FERR GLUC 62.5MG/5ML 125 MG in SODIUM CHL 0.9% 100 ML IV SCH (17:15)
[2021-11-01] MEDS ORDERED: TPN PER PHARMACY IV NR ×5 (20:00)
[2021-11-01] MEDS: NOREPINEPHRINE 8 MG/250ML KIT 250 ML IV SCH ×2 (20:00→22:55)
[2021-11-01] MEDS: ATORVASTATIN 20 MG TAB PO SCH (22:57)
[2021-11-02] VITALS (16 sets, daily range): BP systolic 107–123; BP diastolic 52–66
[2021-11-02] MEDS: InsuLIN REG 1unit/0.01ml Soln (100units/ml) SC SCH ×5 (00:03→23:37)
[2021-11-02 04:53] LABS: Basophils # (auto) 0 10 ^3/uL (0-0.2); Basophils % (auto) 0.5 % (0.0-2.0); Eosinophils # (auto) 0 10 ^3/uL (0-0.8); Eosinophils % (auto) 0.8 % (0.0-7.0); Hematocrit 22.6 % (41.0-53.0); Lymphocytes # (auto) 0.3 10 ^3/uL (0.4-5.4); Lymphocytes % (auto) 5.3 % (10.0-50.0); Mean Corpuscular Hemoglobin 32.5 pg (28.0-32.0); Mean Corpuscular Hgb Conc. 35.3 g/dL (32.0-36.0); Monocytes # (auto) 0.2 10 ^3/uL (0-1.3); Monocytes % (auto) 3.7 % (0.0-12.0); Neutrophils % (auto) 89.7 % (37.0-80.0); Nucleated Red Blood Cells % 0.1 %; Red Blood Cells 2.46 10^6/uL (4.5-5.90); White Blood Cell 5.6 10^3/uL (4.4-10.8)
[2021-11-02] MEDS: PROPOFOL 100 ML IV SCH ×6 (05:35→20:35)
[2021-11-02] MEDS: SODIUM CHLOR 0.9% PF (SALINE LOCK) 10ML VIAL/SYR IV SCH ×3 (05:36→22:04)
[2021-11-02] MEDS: METOCLOPRAMIDE HCL 5MG/ml INJ 2ml VIAL IV SCH ×3 (05:36→22:03)
[2021-11-02] MEDS: ACCU-CHEK COMFORT CURVE STRIP VI SCH ×4 (05:37→23:33)
[2021-11-02 07:11] LABS: Albumin 1.5 g/dL (3.4-5.0); Calcium 7.2 mg/dL (8.5-10.1)
[2021-11-02 07:16] LABS: Bilirubin, Total 0.9 mg/dL (0.2-1.0); Phosphorus 2.3 mg/dL (2.5-4.90); Total Protein 5.4 g/dL (6.4-8.2)
[2021-11-02 07:26] LABS: BUN/Creatinine Ratio 27.7
[2021-11-02 07:29] LABS: Potassium 4.6 mmol/L (3.5-5.1)
[2021-11-02] MEDS: MIDAZOLAM DRIP 50 mg/50mL 50 ML IV SCH ×4 (08:45→18:14)
[2021-11-02] MEDS: ROCURONIUM BROMIDE 1,000 MG in D5W 5% 150 ML IV SCH (08:45)
[2021-11-02] MEDS ORDERED: SODIUM PHOSPHATES 20 MEQ in SODIUM CHL 0.9% 100 ML IV ONE (08:45)
[2021-11-02] MEDS: PANTOPRAZOLE 40 MG/10 ML VIAL INJ IV SCH ×2 (09:07→22:03)
[2021-11-02] MEDS: DexAMETHasone SOD PHOS 4 MG/1ML SDV INJ IV SCH (09:07)
[2021-11-02] MEDS ORDERED: FUROSEMIDE 20 MG/2 ML VIAL IV ONE (09:45)
[2021-11-02] MEDS ORDERED: SUCCINYLCHOLINE CHLORIDE 20 MG/ML 10ML VIAL IV ONE (10:09)
[2021-11-02] MEDS ORDERED: MIDAZOLAM HCL 5 MG/ML-1ML VIAL ONE (10:10)
[2021-11-02] MEDS: fentaNYL Drip 2500mCg/250mlNS 250 ML IV SCH ×2 (11:30→20:37)
[2021-11-02] MEDS: SODIUM FERR GLUC 62.5MG/5ML 125 MG in SODIUM CHL 0.9% 100 ML IV SCH (13:45)
[2021-11-02] MEDS ORDERED: TPN PER PHARMACY IV NR ×9 (20:00)
[2021-11-02] MEDS: NOREPINEPHRINE 8 MG/250ML KIT 250 ML IV SCH (20:00)
[2021-11-02] MEDS: ATORVASTATIN 20 MG TAB PO SCH (22:04)
[2021-11-03] VITALS (11 sets, daily range): BP systolic 102–116; BP diastolic 54–61
[2021-11-03] MEDS: PROPOFOL 100 ML IV SCH ×4 (00:13→22:50)
[2021-11-03] MEDS: ROCURONIUM BROMIDE 1,000 MG in D5W 5% 150 ML IV SCH ×2 (02:54→21:02)
[2021-11-03] MEDS: MIDAZOLAM DRIP 50 mg/50mL 50 ML IV SCH ×4 (03:45→21:55)
[2021-11-03] MEDS: fentaNYL Drip 2500mCg/250mlNS 250 ML IV SCH ×3 (04:24→20:40)
[2021-11-03 04:48] LABS: Albumin 1.9 g/dL (3.4-5.0); Calcium 7.7 mg/dL (8.5-10.1); Potassium 3.2 mmol/L (3.5-5.1)
[2021-11-03 04:50] LABS: BUN/Creatinine Ratio 32.8
[2021-11-03 04:53] LABS: Bilirubin, Total 0.3 mg/dL (0.2-1.0); Phosphorus 2.1 mg/dL (2.5-4.90); Total Protein 4.9 g/dL (6.4-8.2)
[2021-11-03] MEDS: METOCLOPRAMIDE HCL 5MG/ml INJ 2ml VIAL IV SCH ×3 (06:29→22:59)
[2021-11-03] MEDS: SODIUM CHLOR 0.9% PF (SALINE LOCK) 10ML VIAL/SYR IV SCH ×3 (06:30→23:00)
[2021-11-03] MEDS: ACCU-CHEK COMFORT CURVE STRIP VI SCH ×3 (06:30→18:00)
[2021-11-03] MEDS: InsuLIN REG 1unit/0.01ml Soln (100units/ml) SC SCH ×3 (06:32→18:00)
[2021-11-03] MEDS: FUROSEMIDE 20 MG/2 ML VIAL IV SCH (10:00)
[2021-11-03] MEDS: DexAMETHasone SOD PHOS 4 MG/1ML SDV INJ IV SCH (10:00)
[2021-11-03] MEDS: PANTOPRAZOLE 40 MG/10 ML VIAL INJ IV SCH ×2 (10:01→22:59)
[2021-11-03] MEDS: SODIUM FERR GLUC 62.5MG/5ML 125 MG in SODIUM CHL 0.9% 100 ML IV SCH (12:21)
[2021-11-03] MEDS ORDERED: POTASSIUM PHOSPHATE 44 MEQ in D5W 5% 250 ML IV ONE (13:00)
[2021-11-03] MEDS: ROCURONIUM 10MG/ML 10ML VIAL IV PRN (15:01)
[2021-11-03] MEDS: NOREPINEPHRINE 8 MG/250ML KIT 250 ML IV SCH (20:00)
[2021-11-03] MEDS ORDERED: TPN PER PHARMACY IV NR ×9 (20:00)
[2021-11-03] MEDS: ATORVASTATIN 20 MG TAB PO SCH (23:00)
[2021-11-04] VITALS (28 sets, daily range): BP systolic 94–140; BP diastolic 47–73
[2021-11-04] MEDS: MIDAZOLAM DRIP 50 mg/50mL 50 ML IV SCH ×4 (00:15→21:00)
[2021-11-04] MEDS: InsuLIN REG 1unit/0.01ml Soln (100units/ml) SC SCH ×4 (01:07→17:44)
[2021-11-04] MEDS: PROPOFOL 100 ML IV SCH ×4 (01:15→21:55)
[2021-11-04] MEDS: fentaNYL Drip 2500mCg/250mlNS 250 ML IV SCH ×2 (04:15→18:55)
[2021-11-04 04:34] LABS: Basophils # (auto) 0 10 ^3/uL (0-0.2); Basophils % (auto) 0.4 % (0.0-2.0); Eosinophils # (auto) 0.2 10 ^3/uL (0-0.8); Eosinophils % (auto) 4.6 % (0.0-7.0); Hematocrit 24.8 % (41.0-53.0); Hemoglobin 8.2 g/dL (13.5-17.5); Lymphocytes # (auto) 0.9 10 ^3/uL (0.4-5.4); Lymphocytes % (auto) 18.4 % (10.0-50.0); Mean Corpuscular Hemoglobin 29.6 pg (28.0-32.0); Mean Corpuscular Hgb Conc. 32.9 g/dL (32.0-36.0); Monocytes # (auto) 0.5 10 ^3/uL (0-1.3); Monocytes % (auto) 10.3 % (0.0-12.0); Neutrophils # (auto) 3.1 10 ^3/uL (1.6-8.6); Neutrophils % (auto) 66.3 % (37.0-80.0); Nucleated Red Blood Cells % 0.3 %; Red Blood Cells 2.76 10^6/uL (4.5-5.90); Red Cell Distribution Width 15.3 % (11.8-14.3); White Blood Cell 4.7 10^3/uL (4.4-10.8)
[2021-11-04 04:47] LABS: Potassium 3.3 mmol/L (3.5-5.1)
[2021-11-04 04:51] LABS: Albumin 1.9 g/dL (3.4-5.0); BUN/Creatinine Ratio 55.3; Calcium 7.6 mg/dL (8.5-10.1); Magnesium 1.8 mg/dL (1.6-2.6)
[2021-11-04 04:54] LABS: Bilirubin, Total 0.3 mg/dL (0.2-1.0); Phosphorus 2.5 mg/dL (2.5-4.90)
[2021-11-04] MEDS: ROCURONIUM 10MG/ML 10ML VIAL IV PRN ×3 (05:15→12:16)
[2021-11-04 05:22] LABS: INR 1.03 (0.9-1.15); Partial Thromboplastin Time 27.8 sec (23.6-33.0)
[2021-11-04] MEDS: METOCLOPRAMIDE HCL 5MG/ml INJ 2ml VIAL IV SCH ×3 (06:15→21:48)
[2021-11-04] MEDS: ACCU-CHEK COMFORT CURVE STRIP VI SCH ×4 (06:16→17:43)
[2021-11-04] MEDS: SODIUM CHLOR 0.9% PF (SALINE LOCK) 10ML VIAL/SYR IV SCH ×3 (06:16→21:48)
[2021-11-04] MEDS ORDERED: POTASSIUM PHOSPHATE 22 MEQ in SODIUM CHL 0.9% 100 ML IV ONE (09:30)
[2021-11-04] MEDS: FUROSEMIDE 20 MG/2 ML VIAL IV SCH (09:47)
[2021-11-04] MEDS: DexAMETHasone SOD PHOS 4 MG/1ML SDV INJ IV SCH (09:47)
[2021-11-04] MEDS: PANTOPRAZOLE 40 MG/10 ML VIAL INJ IV SCH ×2 (09:47→21:47)
[2021-11-04] MEDS: ACETAMINOPHEN 500 MG TAB PO PRN (10:34)
[2021-11-04] MEDS: SODIUM FERR GLUC 62.5MG/5ML 125 MG in SODIUM CHL 0.9% 100 ML IV SCH (12:00)
[2021-11-04] MEDS ORDERED: ACETAMINOPHEN 500 MG TAB PO PRN (13:45)
[2021-11-04] MEDS ORDERED: LIDOCAINE 1% (LOCAL ANESTH.) PF 5ml SDV ID ONE (15:00)
[2021-11-04] MEDS: ROCURONIUM BROMIDE 1,000 MG in D5W 5% 150 ML IV SCH (17:45)
[2021-11-04] MEDS ORDERED: TPN PER PHARMACY IV NR ×8 (20:00)
[2021-11-04] MEDS: ATORVASTATIN 20 MG TAB PO SCH (21:48)
[2021-11-05] VITALS (29 sets, daily range): BP systolic 95–149; BP diastolic 38–84
[2021-11-05] MEDS: PROPOFOL 100 ML IV SCH ×4 (00:55→21:55)
[2021-11-05] MEDS: MIDAZOLAM DRIP 50 mg/50mL 50 ML IV SCH ×6 (00:55→21:55)
[2021-11-05] MEDS: InsuLIN REG 1unit/0.01ml Soln (100units/ml) SC SCH ×4 (01:17→18:00)
[2021-11-05] MEDS: fentaNYL Drip 2500mCg/250mlNS 250 ML IV SCH ×3 (02:55→21:55)
[2021-11-05 05:25] LABS: Albumin 1.9 g/dL (3.4-5.0); Calcium 7.6 mg/dL (8.5-10.1); Magnesium 1.8 mg/dL (1.6-2.6); Potassium 3.5 mmol/L (3.5-5.1)
[2021-11-05 05:30] LABS: BUN/Creatinine Ratio 51.2; Bilirubin, Total 0.6 mg/dL (0.2-1.0); Phosphorus 2.1 mg/dL (2.5-4.90)
[2021-11-05] MEDS: ACCU-CHEK COMFORT CURVE STRIP VI SCH ×4 (06:22→18:00)
[2021-11-05] MEDS: METOCLOPRAMIDE HCL 5MG/ml INJ 2ml VIAL IV SCH ×3 (06:22→22:47)
[2021-11-05] MEDS: SODIUM CHLOR 0.9% PF (SALINE LOCK) 10ML VIAL/SYR IV SCH ×3 (06:22→22:48)
[2021-11-05] MEDS: FUROSEMIDE 20 MG/2 ML VIAL IV SCH (10:13)
[2021-11-05] MEDS: PANTOPRAZOLE 40 MG/10 ML VIAL INJ IV SCH ×2 (10:13→22:47)
[2021-11-05] MEDS: DexAMETHasone SOD PHOS 4 MG/1ML SDV INJ IV SCH (10:13)
[2021-11-05] MEDS ORDERED: POTASSIUM CHL 10MEQ/50ML 200 ML IV PRN (11:00)
[2021-11-05] MEDS ORDERED: POTASSIUM PHOSPHATE 44 MEQ in D5W 5% 250 ML IV ONE (12:00)
[2021-11-05] MEDS: SODIUM FERR GLUC 62.5MG/5ML 125 MG in SODIUM CHL 0.9% 100 ML IV SCH (12:55)
[2021-11-05] MEDS: ALBUTEROL SULF 2.5 MG/0.5ML(0.5%) NEB SOLN NEB PRN (19:46)
[2021-11-05] MEDS: NOREPINEPHRINE 8 MG/250ML KIT 250 ML IV SCH (20:00)
[2021-11-05] MEDS ORDERED: TPN PER PHARMACY IV NR ×9 (20:00)
[2021-11-05] MEDS: ROCURONIUM BROMIDE 1,000 MG in D5W 5% 150 ML IV SCH (22:45)
[2021-11-05] MEDS: ATORVASTATIN 20 MG TAB PO SCH (22:48)
[2021-11-06] VITALS (25 sets, daily range): BP systolic 92–159; BP diastolic 51–89
[2021-11-06] MEDS: PROPOFOL 100 ML IV SCH ×2 (00:55→03:55)
[2021-11-06] MEDS: MIDAZOLAM DRIP 50 mg/50mL 50 ML IV SCH ×2 (00:55→03:55)
[2021-11-06] MEDS: InsuLIN REG 1unit/0.01ml Soln (100units/ml) SC SCH ×5 (01:03→23:45)
[2021-11-06] MEDS: SODIUM BICARBONATE 8.4 % INJ 50ML VIAL IV SCH ×6 (01:15→23:36)
[2021-11-06] MEDS ORDERED: SODIUM BICARBONATE 8.4 % INJ 50ML VIAL IV ONE ×2 (01:17→20:21)
[2021-11-06] MEDS: ROCURONIUM 10MG/ML 10ML VIAL IV PRN (01:25)
[2021-11-06] MEDS: NOREPINEPHRINE 8 MG/250ML KIT 250 ML IV SCH ×2 (04:00→13:30)
[2021-11-06] MEDS: ACCU-CHEK COMFORT CURVE STRIP VI SCH ×5 (06:00→23:45)
[2021-11-06] MEDS: METOCLOPRAMIDE HCL 5MG/ml INJ 2ml VIAL IV SCH ×3 (06:42→21:38)
[2021-11-06] MEDS: SODIUM CHLOR 0.9% PF (SALINE LOCK) 10ML VIAL/SYR IV SCH ×3 (06:43→20:33)
[2021-11-06] MEDS: DexAMETHasone SOD PHOS 4 MG/1ML SDV INJ IV SCH (10:08)
[2021-11-06] MEDS: PANTOPRAZOLE 40 MG/10 ML VIAL INJ IV SCH ×2 (10:08→21:38)
[2021-11-06 15:02] LABS: Albumin 1.9 g/dL (3.4-5.0); Calcium 7.7 mg/dL (8.5-10.1); Magnesium 2.7 mg/dL (1.6-2.6); Potassium 4.8 mmol/L (3.5-5.1)
[2021-11-06 15:06] LABS: Bilirubin, Total 1.3 mg/dL (0.2-1.0); Total Protein 6.2 g/dL (6.4-8.2)
[2021-11-06 15:39] LABS: Phosphorus 10.4 mg/dL (2.5-4.90)
[2021-11-06] MEDS: ROCURONIUM BROMIDE 1,000 MG in D5W 5% 150 ML IV SCH (16:43)
[2021-11-06] MEDS ORDERED: AMINO ACID INFUSION IN D10W 1,000 ML IV NR (20:00)
[2021-11-06] MEDS: ATORVASTATIN 20 MG TAB PO SCH (21:38)
[2021-11-06] MEDS ORDERED: PHENYLEPHRINE IV 250 ML IV ONE (21:53)
[2021-11-06] MEDS ORDERED: PHENYLEPHRINE HCL 10 MG/ML VL ONE ×2 (21:54→21:59)
[2021-11-06] MEDS: PHENYLEPHRINE INJ 80 MG in SODIUM CHL 0.9% 242 ML IV SCH (22:00)
[2021-11-07] VITALS (21 sets, daily range): BP systolic 111–137; BP diastolic 53–73
[2021-11-07 02:29] LABS: Hematocrit 26.5 % (41.0-53.0); Hemoglobin 8.9 g/dL (13.5-17.5); Mean Corpuscular Hemoglobin 30.1 pg (28.0-32.0); Mean Corpuscular Hgb Conc. 33.6 g/dL (32.0-36.0); Mean Corpuscular Volume 89.6 fL (80.0-100.0); Red Blood Cells 2.95 10^6/uL (4.5-5.90); Red Cell Distribution Width 15.5 % (11.8-14.3); White Blood Cell 2.7 10^3/uL (4.4-10.8)
[2021-11-07 02:32] LABS: Basophils % (manual) 0 (0.0-2.0); Blast Cells 0; Metamyelocytes % 0; Myelocytes % 0; Promyelocytes % 0; Reactive Lymphocytes 0
[2021-11-07 02:40] LABS: Albumin 1.8 g/dL (3.4-5.0); BUN/Creatinine Ratio 20.3; Calcium 6.8 mg/dL (8.5-10.1); Magnesium 1.9 mg/dL (1.6-2.6); Potassium 4.2 mmol/L (3.5-5.1)
[2021-11-07 02:43] LABS: Bilirubin, Total 2.2 mg/dL (0.2-1.0); Phosphorus 7.4 mg/dL (2.5-4.90); Total Protein 5.6 g/dL (6.4-8.2)
[2021-11-07] MEDS: SODIUM BICARBONATE 8.4 % INJ 50ML VIAL IV SCH ×2 (02:52→05:34)
[2021-11-07 03:37] LABS: Band Neutrophils % (manual) 2; Eosinophils % (manual) 1 (0-7); Lymphocytes % (manual) 42 (10.0-50.0); Monocytes % (manual) 25 (0-12)
[2021-11-07] MEDS: ACCU-CHEK COMFORT CURVE STRIP VI SCH ×3 (05:30→17:14)
[2021-11-07] MEDS: InsuLIN REG 1unit/0.01ml Soln (100units/ml) SC SCH ×3 (05:30→17:14)
[2021-11-07] MEDS: SODIUM CHLOR 0.9% PF (SALINE LOCK) 10ML VIAL/SYR IV SCH ×3 (05:33→21:41)
[2021-11-07] MEDS: METOCLOPRAMIDE HCL 5MG/ml INJ 2ml VIAL IV SCH ×3 (05:37→21:41)
[2021-11-07] MEDS: PROPOFOL 100 ML IV SCH ×6 (08:37→21:39)
[2021-11-07] MEDS: MIDAZOLAM DRIP 50 mg/50mL 50 ML IV SCH ×5 (09:04→21:39)
[2021-11-07] MEDS: PANTOPRAZOLE 40 MG/10 ML VIAL INJ IV SCH ×2 (09:19→21:41)
[2021-11-07] MEDS: DexAMETHasone SOD PHOS 4 MG/1ML SDV INJ IV SCH (09:19)
[2021-11-07] MEDS: NOREPINEPHRINE 8 MG/250ML KIT 250 ML IV SCH ×2 (10:00→14:59)
[2021-11-07] MEDS: fentaNYL Drip 2500mCg/250mlNS 250 ML IV SCH ×2 (10:24→14:51)
[2021-11-07] MEDS: ROCURONIUM BROMIDE 1,000 MG in D5W 5% 150 ML IV SCH (12:32)
[2021-11-07] MEDS ORDERED: TPN PER PHARMACY IV NR ×8 (20:00)
[2021-11-07] MEDS: PHENYLEPHRINE INJ 80 MG in SODIUM CHL 0.9% 242 ML IV SCH (20:45)
[2021-11-07] MEDS: ATORVASTATIN 20 MG TAB PO SCH (21:41)
[2021-11-08] VITALS (73 sets, daily range): BP systolic 69–139; BP diastolic 36–80
[2021-11-08] MEDS: fentaNYL Drip 2500mCg/250mlNS 250 ML IV SCH ×2 (00:50→10:07)
[2021-11-08] MEDS: ACCU-CHEK COMFORT CURVE STRIP VI SCH ×5 (00:51→23:52)
[2021-11-08] MEDS: InsuLIN REG 1unit/0.01ml Soln (100units/ml) SC SCH ×5 (00:52→23:52)
[2021-11-08] MEDS: MIDAZOLAM DRIP 50 mg/50mL 50 ML IV SCH ×2 (01:40→10:08)
[2021-11-08] MEDS: SODIUM CHLOR 0.9% PF (SALINE LOCK) 10ML VIAL/SYR IV SCH ×3 (06:09→20:42)
[2021-11-08] MEDS: METOCLOPRAMIDE HCL 5MG/ml INJ 2ml VIAL IV SCH ×3 (06:09→21:14)
[2021-11-08] MEDS ORDERED: SODIUM BICARBONATE 50ML VIAL 100 ML in SOD CHL 0.45% 1,000 ML IV ONE (08:45)
[2021-11-08] MEDS ORDERED: DOPamine 1600MCG/ML D5W 250 ML IV SCH (08:45)
[2021-11-08] MEDS: PANTOPRAZOLE 40 MG/10 ML VIAL INJ IV SCH ×2 (10:00→21:14)
[2021-11-08] MEDS: ALBUMIN 25% 100 ML IV SCH ×2 (10:00→18:00)
[2021-11-08] MEDS: PROPOFOL 100 ML IV SCH (10:08)
[2021-11-08] MEDS: BUMETANIDE INJECTION 25 MG in GIVE UN-DILUTED 0 ML IV SCH (10:38)
[2021-11-08] MEDS: ROCURONIUM BROMIDE 1,000 MG in D5W 5% 150 ML IV SCH (10:42)
[2021-11-08] MEDS: DexAMETHasone SOD PHOS 4 MG/1ML SDV INJ IV SCH (10:53)
[2021-11-08] MEDS: SODIUM BICARBONATE 50ML VIAL 100 ML in SOD CHL 0.45% 1,000 ML IV SCH ×2 (10:53→18:48)
[2021-11-08 11:31] LABS: Hematocrit 24.3 % (41.0-53.0); Hemoglobin 8.3 g/dL (13.5-17.5); Mean Corpuscular Hemoglobin 30.4 pg (28.0-32.0); Mean Corpuscular Hgb Conc. 34.1 g/dL (32.0-36.0); Mean Corpuscular Volume 89.1 fL (80.0-100.0); Red Blood Cells 2.73 10^6/uL (4.5-5.90); Red Cell Distribution Width 16.2 % (11.8-14.3); White Blood Cell 2.1 10^3/uL (4.4-10.8)
[2021-11-08 11:33] LABS: Basophils % (manual) 0 (0.0-2.0); Blast Cells 0; Eosinophils % (manual) 0 (0-7); Metamyelocytes % 0; Myelocytes % 0; Promyelocytes % 0; Reactive Lymphocytes 0
[2021-11-08] MEDS ORDERED: SODIUM BICARBONATE 8.4 % INJ 50ML VIAL IV ONE ×2 (12:41→12:45)
[2021-11-08 13:31] LABS: Albumin 1.7 g/dL (3.4-5.0); BUN/Creatinine Ratio 19.6; Bilirubin, Total 2.3 mg/dL (0.2-1.0); Calcium 6.5 mg/dL (8.5-10.1); Phosphorus 7.6 mg/dL (2.5-4.90); Total Protein 5.3 g/dL (6.4-8.2)
[2021-11-08] MEDS ORDERED: CALCIUM GLUC 1,000mg/50ml-NS 50 ML IV ONE (13:45)
[2021-11-08 13:53] LABS: Band Neutrophils % (manual) 8; Lymphocytes % (manual) 30 (10.0-50.0)
[2021-11-08 13:54] LABS: Monocytes % (manual) 22 (0-12)
[2021-11-08] MEDS ORDERED: TPN PER PHARMACY IV NR ×7 (20:00)
[2021-11-08] MEDS: NOREPINEPHRINE 8 MG/250ML KIT 250 ML IV SCH (20:03)
[2021-11-08] MEDS: PHENYLEPHRINE INJ 80 MG in SODIUM CHL 0.9% 242 ML IV SCH (20:41)
[2021-11-08] MEDS: ATORVASTATIN 20 MG TAB PO SCH (20:42)
[2021-11-09] VITALS (54 sets, daily range): BP systolic 85–134; BP diastolic 10–66
[2021-11-09] MEDS ORDERED: VASOPRESSIN 50 UNITS in D5W 5% 247.5 ML IV SCH (00:15)
[2021-11-09] MEDS: SODIUM CHLOR 0.9% PF (SALINE LOCK) 10ML VIAL/SYR IV SCH (01:48)
[2021-11-09] MEDS: ALBUMIN 25% 100 ML IV SCH ×2 (01:48→09:51)
[2021-11-09] MEDS: SODIUM BICARBONATE 50ML VIAL 100 ML in SOD CHL 0.45% 1,000 ML IV SCH (02:39)
[2021-11-09 04:14] LABS: Albumin 2.2 g/dL (3.4-5.0); Calcium 6.4 mg/dL (8.5-10.1); Magnesium 2.2 mg/dL (1.6-2.6)
[2021-11-09 05:27] LABS: Potassium 5.6 mmol/L (3.5-5.1)
[2021-11-09 05:28] LABS: BUN/Creatinine Ratio 18.4; Phosphorus 10.3 mg/dL (2.5-4.90)
[2021-11-09] MEDS: InsuLIN REG 1unit/0.01ml Soln (100units/ml) SC SCH (06:00)
[2021-11-09] MEDS ORDERED: HEPARIN DRIP/D5W 100UNITS/ML 250 ML IV SCH (06:00)
[2021-11-09] MEDS ORDERED: ASPirin 300 MG RECTAL SUPP PR ONE (06:00)
[2021-11-09] MEDS: METOCLOPRAMIDE HCL 5MG/ml INJ 2ml VIAL IV SCH (06:00)
[2021-11-09] MEDS: ACCU-CHEK COMFORT CURVE STRIP VI SCH (06:06)
[2021-11-09 06:16] LABS: Total Protein 6.4 g/dL (6.4-8.2)
[2021-11-09] MEDS: ROCURONIUM BROMIDE 1,000 MG in D5W 5% 150 ML IV SCH (08:36)
[2021-11-09] MEDS: PROPOFOL 100 ML IV SCH (08:37)
[2021-11-09] MEDS: BUMETANIDE INJECTION 25 MG in GIVE UN-DILUTED 0 ML IV SCH (08:45)
[2021-11-09] MEDS ORDERED: InsuLIN REG 1unit/0.01ml Soln (100units/ml) IV ONE (09:45)
[2021-11-09] MEDS ORDERED: SODIUM BICARBONATE 8.4 % INJ 50ML VIAL IV ONE (09:45)
[2021-11-09] MEDS ORDERED: DEXTROSE (50%) 50ML SYRG IV ONE (09:45)
[2021-11-09] MEDS ORDERED: CALCIUM GLUC 1,000mg/50ml-NS 50 ML IV ONE (09:45)
[2021-11-09] MEDS: DexAMETHasone SOD PHOS 4 MG/1ML SDV INJ IV SCH (09:49)
[2021-11-09] MEDS: PANTOPRAZOLE 40 MG/10 ML VIAL INJ IV SCH (09:49)
[2021-11-09 09:58] LABS: White Blood Cell 7.7 10^3/uL (4.4-10.8)
[2021-11-09] MEDS ORDERED: FUROSEMIDE IV SCH (10:00)
[2021-11-09] MEDS ORDERED: SODIUM CHL 0.9% IV SCH (10:00)
[2021-11-09 10:13] LABS: INR 1.3 (0.9-1.15); Partial Thromboplastin Time 38.3 sec (23.6-33.0)
[2021-11-09 10:45] LABS: Hematocrit 23.4 % (41.0-53.0); Hemoglobin 8.3 g/dL (13.5-17.5); Mean Corpuscular Hemoglobin 32.5 pg (28.0-32.0); Mean Corpuscular Hgb Conc. 35.5 g/dL (32.0-36.0); Mean Corpuscular Volume 91.5 fL (80.0-100.0); Red Blood Cells 2.56 10^6/uL (4.5-5.90); Red Cell Distribution Width 16.4 % (11.8-14.3)
[2021-11-09 10:47] LABS: Basophils % (manual) 0 (0.0-2.0); Blast Cells 0; Promyelocytes % 0; Reactive Lymphocytes 0
[2021-11-09] MEDS ORDERED: SODIUM BICARBONATE 50ML VIAL 150 ML in D5W 5% 1,000 ML IV ONE (11:45)
[2021-11-09 14:59] LABS: Band Neutrophils % (manual) 18; Eosinophils % (manual) 1 (0-7); Lymphocytes % (manual) 23 (10.0-50.0); Metamyelocytes % 3; Monocytes % (manual) 9 (0-12); Myelocytes % 6
[2021-11-09 16:31] LABS: Hepatitis C Antibody Negative (Negative)
== END 2021-11-09 18:37 | DRG 720 ==
LOC: ER 10:45 → TELE-EAST 18:28 → TELE-E-ADS 10-10 05:53 → ICU WEST 10-13 10:31 → TELE-E-ADS 10-13 10:47 → ICU WEST 10-14 14:29
PROVIDERS: ADMIT Family Medicine; ATTEND Internal Medicine
PROC: XW033E5 Introduction of Remdesivir Anti-infective into Peripheral Vein, Percutaneous Approach, New Technology Group 5 (ICD-10-PCS; 2021-10-07)
PROC: 0W9930Z Drainage of Right Pleural Cavity with Drainage Device, Percutaneous Approach (ICD-10-PCS; 2021-10-07)
PROC: 5A0935A Assistance with Respiratory Ventilation, Less than 24 Consecutive Hours, High Flow/Velocity Cannula (ICD-10-PCS; 2021-10-10)
PROC: 5A0935A Assistance with Respiratory Ventilation, Less than 24 Consecutive Hours, High Flow/Velocity Cannula (ICD-10-PCS; 2021-10-11)
PROC: 5A09457 Assistance with Respiratory Ventilation, 24-96 Consecutive Hours, Continuous Positive Airway Pressure (ICD-10-PCS; 2021-10-11)
PROC: 05HB33Z Insertion of Infusion Device into Right Basilic Vein, Percutaneous Approach (ICD-10-PCS; 2021-10-13)
PROC: B54MZZA Ultrasonography of Right Upper Extremity Veins, Guidance (ICD-10-PCS; 2021-10-13)
PROC: 5A1955Z Respiratory Ventilation, Greater than 96 Consecutive Hours (ICD-10-PCS; principal; 2021-10-14)
PROC: 0BH17EZ Insertion of Endotracheal Airway into Trachea, Via Natural or Artificial Opening (ICD-10-PCS; 2021-10-14)
PROC: 3E0336Z Introduction of Nutritional Substance into Peripheral Vein, Percutaneous Approach (ICD-10-PCS; 2021-11-02)
DX: A41.89 Other specified sepsis (principal); I46.9 Cardiac arrest, cause unspecified; J12.82 Pneumonia due to coronavirus disease 2019; J96.01 Acute respiratory failure with hypoxia; N17.0 Acute kidney failure with tubular necrosis; E44.1 Mild protein-calorie malnutrition; D61.818 Other pancytopenia; Z66 Do not resuscitate; G92.8 Other toxic encephalopathy; R65.21 Severe sepsis with septic shock; U07.1 COVID-19; J98.11 Atelectasis; D89.839 Cytokine release syndrome, grade unspecified; E66.01 Morbid (severe) obesity due to excess calories; D50.9 Iron deficiency anemia, unspecified; E87.6 Hypokalemia; K21.9 Gastro-esophageal reflux disease without esophagitis; E78.5 Hyperlipidemia, unspecified; J93.83 Other pneumothorax; E88.09 Other disorders of plasma-protein metabolism, not elsewhere classified; E87.70 Fluid overload, unspecified; I11.9 Hypertensive heart disease without heart failure; Z68.41 Body mass index [BMI] 40.0-44.9, adult; Z99.11 Dependence on respirator [ventilator] status; Z88.0 Allergy status to penicillin
CPT/HCPCS: 36415; 36569; 36600; 71045; 71275; 76775; 80048; 80053; 80061; 81001; 82040; 82306; 82607; 82728; 82746; 82805; 82962; 83036; 83540; 83550; 83605; 83615; 83735; 83880; 83970; 84100; 84132; 84443; 84478; 84484; 85007; 85025; 85027; 85379; 85610; 85730; 86141; 86803; 87040; 87070; 87205; 87340; 87426; 93005; 93306; 93970; 94002; 94003; 94640; 94660; 96361; 96365; 96375; C9113; G0378; J0330; J0696; J1100; J1815; J2250; J2405; J2704; J7060; J7131; P9047